=== PATIENT | female | born 2000 | race Caucasian/White ===

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

== ENCOUNTER 2018-08-20 20:34 | Emergency (ER) | payer OTHER ==
[2018-08-20 20:57] VITALS: BP 128/66; PULSE 77; RESP 16; TEMP 98.8
--- NOTE | 2018-08-20 21:19 | ED ---
General Adult HPI - General Chief complaint: Recheck/Abnormal Lab/Rx Stated complaint: Wants blood test, cramping Time Seen by Provider: 08/20/18 21:13 Source: patient Mode of arrival: ambulatory Limitations: no limitations - History of Present Illness Initial comments: Dictation was produced using [employer] dictation software. please excuse any grammatical, word or spelling errors. Chief Complaint: 18-year-old female presents with request for beta-hCG serum blood tests. History of Present Illness:-year-old female. She states that she had multiple positive urine test today. She went to the clinic where she had a mother urine test done it was found to be negative. Patient tod ay requesting hCG serum blood test. She states she has symptoms of early with left breast burning and polyuria. Patient's last menstrual period was 4 weeks ago. Patient has no complaints. The ROS documented in this emergency department record has been reviewed and confirmed by me. Those systems with pertinent positive or negative responses have been documented in the HPI. All other systems are other negative and/or noncontributory. PHYSICAL EXAM: General Impression: Alert and oriented x3, not in acute distress HEENT: Normocephalic atraumatic, extra-ocular movements intact, pupils equal and reactive to light bilaterally, mucous membranes moist. Cardiovascular: Heart regular rate and rhythm, S1&S2 audible, no murmurs, rubs or gallops Chest: Lungs clear to auscultation bilaterally, no rhonchi, no wheeze, no rales Abdomen: Bowel sounds present, abdomen soft, non-tender, non-distended, no organomegaly Musculoskeletal: Pulses present and equal in all extremities, no peripheral edema Motor: no focal deficits noted Neurological: CN II-XII grossly intact, no focal motor or sensory deficits noted Skin: Intact with no visualized rashes Psych: Normal affect and mood ED course: 18-year-old female with request for serum hCG test. As upon arrival are within acceptable limits. Patient has no medical complaint at this time. His beta Quant is 119.6. Patient has positive test. Patient does have an appointment early with obstetrics. Patient clear for discharge. Patient advised to take prenatals. She states she is vitamins at home that she is currently taking. Return Prevacid discussed. Patient clear for discharge. - Related Data Home Medications Medication Instructions Recorded Confirmed Pnv No.95/Ferrous Fum/Folic AC 1 each PO DAILY 09/03/17 09/03/17 [ Multivitamin Tablet] Previous Rx's Medication Instructions Recorded Ibuprofen [Motrin] 600 mg PO Q6HR PRN #30 tab 09/05/17 Allergies Allergy/AdvReac Type Severity Reaction Status Date / Time No Known Allergies Allergy Verified 08/20/18 21:17 Review of Systems ROS Statement: Those systems with pertinent positive or pertinent negative responses have been documented in the HPI. ROS Other: All systems not noted in ROS Statement are negative. Past Medical History Past Medical History: No Reported History Additional Past Medical History / Comment(s): A+GBS neg. History of Any Multi-Drug Resistant Organisms: None Reported Past Surgical History: No Surgical Hx Reported Past Anesthesia/Blood Transfusion Reactions: No Reported Reaction Past Psychological History: No Psychological Hx Reported Smoking Status: Never smoker Past Alcohol Use History: None Reported Past Drug Use History: None Reported - Past Family History Mother History Unknown: Yes General Exam Limitations: no limitations Course Vital Signs 08/20/18 20:53 Temperature 98.8 F Pulse Rate 77 Respiratory 16 Rate Blood Pressure 128/66 O2 Sat by Pulse 100 Oximetry Medical Decision Making - Lab Data Lab Results 08/20/18 Range/Units 21:20 HCG, Quant 119.6 mIU/mL Disposition Clinical Impression: Positive test Disposition: HOME SELF-CARE Condition: Good Instructions (If sedation given, give patient instructions): (ED) Is patient prescribed a controlled substance at d/c from ED?: No Referrals: Brooke Bartholomew MD [Primary Care Provider] - 1-2 days Time of Disposition: 22:21
== END 2018-08-20 22:33 | disposition home or self-care (01) ==
LOC: EC 20:34
DX: Z32.01 Encounter for pregnancy test, result positive (principal)
CPT/HCPCS: 36415; 84702; 99281

== ENCOUNTER → 2018-08-29 | Outpatient (CLI) | payer OTHER | LOC: LABWHC1 10:18 | PROVIDERS: ATTEND Nurse Practitioner | DX: O99.89 Other specified diseases and conditions complicating pregnancy, childbirth and the puerperium (principal); R10.9 Unspecified abdominal pain; Z3A.00 Weeks of gestation of pregnancy not specified | CPT/HCPCS: 36415; 84702 ==

== ENCOUNTER → 2018-09-01 | Outpatient (CLI) | payer OTHER | END | disposition home or self-care (01) | LOC: LABWHC1 11:40 | PROVIDERS: ATTEND Obstetrics & Gynecology | DX: O20.0 Threatened abortion (principal); Z3A.00 Weeks of gestation of pregnancy not specified | CPT/HCPCS: 36415; 84702 ==

== ENCOUNTER → 2018-09-17 | Outpatient (CLI) | payer OTHER ==
--- NOTE | 2018-09-17 15:58 | US ---
EXAMINATION TYPE: Transabdominal DATE OF EXAM: 09/17/2018 3:46 PM COMPARISON: Prior ultrasound August 26, 2018. CLINICAL HISTORY: confirms dates Z36. EXAM PERFORMED: Transabdominal (TA) EXAM MEASUREMENTS: GESTATIONAL AGE / DATING Physician Established: Not yet established Dates by LMP: 07/20/2018 ( 8 weeks/3 days) EDC: 04/26/2019 Dates by First Scan: no IUP seen Dates by Current Scan for: (8 weeks/1 days) EDC: 04/28/2019 MATERNAL ANATOMY Uterus: 9.6 x 6.4 x 5.7 cm Right Ovary: 3.7 x 1.9 x 1.6 cm Left Ovary: 2.9 x 1.6 x 2.9 cm Post CDS / Adnexa: wnl Presence of free fluid: none GESTATION / SURVEY CRL: 1.7 cm (8 weeks/1 days) Yolk Sac (normal less than 6mm): 0.4 cm Heart Rate: 164 bpm Rhythm: Normal IUP: Viable IUP Date of LMP: 07/20/2018 Single live intrauterine gestation is now present with yolk sac, pole, and gestational sac now observed. No free fluid. Both ovaries identified without suspicious extraovarian adnexal mass. IMPRESSION: Single live intrauterine gestation is now confirmed, mean crown-rump length is 1.7 cm cor responding to 8 week 1 day old fetus.
== END | disposition home or self-care (01) ==
LOC: RADUSWWP 15:20
PROVIDERS: ATTEND Obstetrics & Gynecology
DX: Z34.91 Encounter for supervision of normal pregnancy, unspecified, first trimester (principal); Z3A.08 8 weeks gestation of pregnancy
CPT/HCPCS: 76801

== ENCOUNTER 2019-01-02 20:25 | Outpatient (CLI) | payer OTHER ==
[2019-01-02 20:40] VITALS: BP 124/61; PULSE 85; RESP 16; TEMP 97.5
[2019-01-02 21:19] LABS: Appearance,Urine Clear (Clear); Bilirubin,Urine Negative (Negative); Blood,Urine Negative (Negative); Color,Urine Light Yellow; Glucose,Urine (UA) Negative (Negative); Ketones,Urine Negative (Negative); Leukocyte Esterase,Urine Negative (Negative); Nitrite,Urine Negative (Negative); Protein,Urine Negative (Negative); Urobilinogen,Urine <2.0 mg/dL (<2.0)
--- NOTE | 2019-01-12 03:50 | P.MSEPDOC ---
Presenting Problems - Arrival Data Date of Arrival on Unit: 01/02/19 Time of Arrival on Unit: 20:25 Mode of Transport: Ambulatory - Complaint OB-Reason for Admission/Chief Complaint: Signs/Symptoms UTI Medical History - Information : 2 Para: 1 Term: 1 : 0 Abortions: Spontaneous or Elective: 0 Number of Living Children: 1 - Gestational Age Gestational Age by JOHNATHON (wks/days): 23 Weeks and 5 Days Review of Systems - Review of Systems Constitutional: No problems Breast: No problems ENT: No problems Cardiovascular: No problems Respiratory: No problems Gastrointestinal: No problems Genitourinary: No problems Musculoskeletal: No problems Neurological: No problems Skin: No problems Vital Signs - Temperature Temperature: 97.5 F Temperature Source: Tympanic - Pulse Right Brachial Pulse Rate: 85 Pulse Assessment Method: Automatic Cuff - Respirations Respiratory Rate: 16 Oxygen Delivery Method: Room Air - Blood Pressure Right Arm Blood Pressure: 124/61 Blood Pressure Mean: 82 Blood Pressure Source: Automatic Cuff Medical Screen Scoring (Pre) - Cervical Exam Dilation: Exam Deferred Effacement: Exam Deferred - Uterine Contractions Frequency: N/A Duration: N/A Intensity: N/A - Maternal Vital Signs Maternal Temperature: N/A Maternal Blood Pressure: N/A Signs of Preeclampsia: N/A Maternal Respirations: N/A - Maternal Trauma Maternal Trauma: N/A - Assessment - Baby A Baseline FHR: 135 - Total Score - Baby A Total Score - Baby A: 0 - Total Score - Baby B Total Score - Baby B: 0 - Total Score - Baby C Total Score - Baby C: 0 - Level of Risk - Baby A Level of Risk - Baby A: Low (0-5) - Level of Risk - Baby B Level of Risk - Baby B: Low (0-5) - Level of Risk - Baby C Level of Risk - Baby C: Low (0-5) Physician Notification (Pre) - Physician Notified Physician Notified Date: 01/02/19 Physician Notified Time: 21:15 New Order Received: Yes - Notification Comment Comment: d/c home Disposition - Disposition OB Disposition: Discharge to home Discharge Date: 01/02/19 Discharge Time: 21:20 I agree with the RN Medical Screening Exam: No Physician's MSE Comment: There really is no documentation of the workup for UTI symptoms here. Risk & Benefit of care provided described in d/c instruction: No Risk & Benefit of Care Comment: I don't have documentation of what was told to the patient in this note. Diagnosis: URINARY TRACT INFECTION, SITE NOT SPECIFIED
== END 2019-01-02 21:20 | disposition home or self-care (01) ==
LOC: FBPOP 20:25
PROVIDERS: ATTEND Obstetrics & Gynecology
DX: O23.42 Unspecified infection of urinary tract in pregnancy, second trimester (principal); Z3A.23 23 weeks gestation of pregnancy
CPT/HCPCS: 81003; G0463; 99213

== ENCOUNTER 2019-03-05 12:39 | Outpatient (CLI) | payer OTHER ==
[2019-03-05 13:29] LABS: Appearance,Urine Clear (Clear); Bilirubin,Urine Negative (Negative); Blood,Urine Negative (Negative); Color,Urine Light Yellow; Glucose,Urine (UA) Negative (Negative); Ketones,Urine Negative (Negative); Leukocyte Esterase,Urine Negative (Negative); Nitrite,Urine Negative (Negative); Protein,Urine Negative (Negative); Specific Gravity,Urine 1.008 (1.001-1.035); Urobilinogen,Urine <2.0 mg/dL (<2.0)
[2019-03-05 14:03] VITALS: BP 119/64; PULSE 103; RESP 16; TEMP 97.5
--- NOTE | 2019-03-16 17:10 | P.MSEPDOC ---
Presenting Problems - Arrival Data Date of Arrival on Unit: 03/05/19 Time of Arrival on Unit: 12:39 Mode of Transport: Ambulatory - Complaint OB-Reason for Admission/Chief Complaint: Pain Comment: cramping, rates 4 on scale of 0-10 Medical History - Information : 2 Para: 1 Term: 1 : 0 Abortions: Spontaneous or Elective: 0 Number of Living Children: 1 - Gestational Age Gestational Age by JOHNATHON (wks/days): 32 Weeks and 4 Days Review of Systems - Review of Systems Constitutional: No problems Breast: No problems ENT: No problems Cardiovascular: No problems Respiratory: No problems Gastrointestinal: No problems Genitourinary: No problems Musculoskeletal: No problems Neurological: No problems Skin: No problems Vital Signs - Temperature Temperature: 97.5 F Temperature Source: Temporal Artery Scan - Pulse Right Sitting Pulse Rate: 103 Pulse Assessment Method: Automatic Cuff - Respirations Respiratory Rate: 16 Oxygen Delivery Method: Room Air - Blood Pressure Right Arm Blood Pressure: 119/64 Blood Pressure Mean: 82 Blood Pressure Source: Automatic Cuff Medical Screen Scoring (Pre) - Cervical Exam Dilation: 0 cm = 0 Membranes: Intact - Uterine Contractions Frequency: > or = 36 weeks =2 Duration: > 40 seconds = 2 Intensity: N/A - Maternal Vital Signs Maternal Temperature: N/A Maternal Blood Pressure: N/A Signs of Preeclampsia: N/A Maternal Respirations: N/A - Maternal Trauma Maternal Trauma: N/A - Assessment - Baby A Baseline FHR: 135 Heart Rate - NICHD Category: Category I (Normal) = 0 NST: Reactive Position: N/A Station: N/A - Total Score - Baby A Total Score - Baby A: 4 - Total Score - Baby B Total Score - Baby B: 4 - Total Score - Baby C Total Score - Baby C: 4 - Level of Risk - Baby A Level of Risk - Baby A: Low (0-5) - Level of Risk - Baby B Level of Risk - Baby B: Low (0-5) - Level of Risk - Baby C Level of Risk - Baby C: Low (0-5) Physician Notification (Pre) - Physician Notified Physician Notified Date: 03/05/19 Physician Notified Time: 13:51 New Order Received: Yes (D/c home) Disposition - Disposition OB Disposition: Discharge to home Discharge Date: 03/05/19 Discharge Time: 13:55 I agree with the RN Medical Screening Exam: Yes Risk & Benefit of care provided described in d/c instruction: Yes Diagnosis: FALSE LABOR BEFORE 37 COMPLETED WEEKS OF GEST, THIRD TRI
== END 2019-03-05 13:55 | disposition home or self-care (01) ==
LOC: FBPOP 12:39
PROVIDERS: ATTEND Obstetrics & Gynecology
DX: O47.03 False labor before 37 completed weeks of gestation, third trimester (principal); Z3A.32 32 weeks gestation of pregnancy
CPT/HCPCS: 59025; 81003; G0463; 99213

== ENCOUNTER 2019-04-04 14:57 | Outpatient (CLI) | payer OTHER ==
[2019-04-04 16:36] LABS: Basophils % (A) 0 %; Eosinophils % (A) 1 %; HCT 26.8 % (34.0-46.0); HGB 8.8 gm/dL (11.4-16.0); Hypochromasia Moderate; Lymphocytes # (A) 1.7 k/uL (1.0-4.8); Lymphocytes % (A) 20 %; MCHC 32.7 g/dL (31.0-37.0); MCV 82.6 fL (80.0-100.0); Mean Platelet Volume 9.3; Monocytes # (A) 0.4 k/uL (0-1.0); Monocytes % (A) 5 %; Neutrophils # (A) 6.3 k/uL (1.3-7.7); Neutrophils % (A) 73 %; Platelet Count 199 k/uL (150-450); Poikilocytosis Slight; RBC 3.25 m/uL (3.80-5.40); RDW 14.5 % (11.5-15.5); WBC 8.6 k/uL (4.0-11.0)
[2019-04-04 16:41] LABS: Amorphous Sediment,Urine Rare /hpf; Appearance,Urine Cloudy (Clear); Bacteria,Urine Moderate /hpf; Bilirubin,Urine Negative (Negative); Blood,Urine Negative (Negative); Color,Urine Light Yellow; Glucose,Urine (UA) Negative (Negative); Ketones,Urine Negative (Negative); Leukocyte Esterase,Urine Large (Negative); Mucus,Urine Rare /hpf; Nitrite,Urine Negative (Negative); Protein,Urine Negative (Negative); RBC,Urine 3 /hpf (0-5); Specific Gravity,Urine 1.012 (1.001-1.035); Squamous Epithelial Cell,Urine 4 /hpf (0-4); Urobilinogen,Urine <2.0 mg/dL (<2.0); WBC,Urine 90 /hpf (0-5)
[2019-04-04 16:45] LABS: ALT 15 U/L (4-34); AST 28 U/L (14-36); African American GFR (CKD) >90 (>60 ml/min/1.73 sqM); Blood Urea Nitrogen 15 mg/dL (7-17); Non-African American GFR(CKD) >90 (>60 ml/min/1.73 sqM); Uric Acid 3.8 mg/dL (3.7-7.4)
[2019-04-04 17:03] LABS: INR 0.9 (<1.2); Prothrombin Time 9.3 sec (9.0-12.0)
[2019-04-04 17:04] LABS: Partial Thromboplastin Time 20.2 sec (22.0-30.0)
[2019-04-04 17:51] VITALS: RESP 18; TEMP 98.3
[2019-04-04 17:54] VITALS: BP 116/56; PULSE 99
--- NOTE | 2019-04-07 08:18 | P.MSEPDOC ---
Presenting Problems - Arrival Data Date of Arrival on Unit: 04/04/19 Time of Arrival on Unit: 14:55 Mode of Transport: Ambulatory - Complaint OB-Reason for Admission/Chief Complaint: Possible Onset of Labor, Rule Out SROM Comment: 36 6/7 WKS WITH C/O CONTX 2-3 MIN APART AND QUESTIONABLE LEAKING OF FLUID ONSET NOON TODAY Medical History - Information : 2 Para: 1 Term: 1 : 0 Abortions: Spontaneous or Elective: 0 Number of Living Children: 1 - Gestational Age Gestational Age by JOHNATHON (wks/days): 36 Weeks and 2 Days - History Comment: HYPERTENSION ON ADMISSION IN TRIAGE. POLYHYDRAMNIOUS OF 27.3 OF FRIDAY APPT.2 DAYS AGO Review of Systems - Review of Systems Constitutional: No problems Breast: No problems ENT: No problems Cardiovascular: No problems Respiratory: No problems Gastrointestinal: No problems Genitourinary: No problems Musculoskeletal: No problems Neurological: No problems Skin: No problems Vital Signs - Temperature Temperature: 98.3 F - Pulse Right Brachial Pulse Rate: 99 Pulse Assessment Method: Automatic Cuff - Respirations Respiratory Rate: 18 Oxygen Delivery Method: Room Air - Blood Pressure Right Arm Blood Pressure: 116/56 Blood Pressure Mean: 76 Blood Pressure Source: Automatic Cuff Medical Screen Scoring (Pre) - Cervical Exam Dilation: 0 cm = 0 Effacement: Exam Deferred Membranes: Intact - Uterine Contractions Frequency: N/A Duration: N/A Intensity: N/A - Maternal Vital Signs Maternal Temperature: N/A Maternal Blood Pressure: Systolic >139 = 2 Signs of Preeclampsia: N/A Maternal Respirations: N/A - Maternal Trauma Maternal Trauma: N/A - Assessment - Baby A Baseline FHR: 135 Heart Rate - NICHD Category: Category I (Normal) = 0 NST: Reactive - Total Score - Baby A Total Score - Baby A: 2 - Total Score - Baby B Total Score - Baby B: 2 - Total Score - Baby C Total Score - Baby C: 2 - Level of Risk - Baby A Level of Risk - Baby A: Low (0-5) - Level of Risk - Baby B Level of Risk - Baby B: Low (0-5) - Level of Risk - Baby C Level of Risk - Baby C: Low (0-5) Physician Notification (Pre) - Physician Notified Physician Notified Date: 04/04/19 Physician Notified Time: 15:25 New Order Received: Yes - Notification Comment Comment: [facility] Medical Screen Scoring (Post) - Cervical Exam Dilation: Exam Deferred Effacement: Exam Deferred Membranes: Intact - Uterine Contractions Frequency: N/A Duration: N/A Intensity: N/A - Maternal Vital Signs Maternal Temperature: N/A Maternal Blood Pressure: N/A Signs of Preeclampsia: N/A Maternal Respirations: N/A - Pain Assessment Pain Location and Character: Lower, Abdomen Pain Scale Used: Numeric (1 - 10) Pain Intensity: 4 Pain Aggravating Factors: Contractions - Maternal Trauma Maternal Trauma: N/A - Assessment - Baby A Heart Rate: 135 Heart Rate - NICHD Category: Category I (Normal) = 0 NST: Reactive Position: N/A Station: N/A - Total Score Total Score - Baby A: 0 Total Score - Baby B: 0 Total Score - Baby C: 0 - Post Treatment Level of Risk Post Treatment Level of Risk - Baby A: Low (0-5) Post Treatment Level of Risk - Baby B: Low (0-5) Post Treatment Level of Risk - Baby C: Low (0-5) Physician Notification (Post) - Physician Notified Physician Notified Date: 04/04/19 Physician Notified Time: 16:45 Spoke With: MELANY New Order Received: Yes - Notification Comment Comment: DISCH HOME. Disposition - Disposition OB Disposition: Discharge to home Discharge Date: 04/04/19 Discharge Time: 17:00 I agree with the RN Medical Screening Exam: Yes Risk & Benefit of care provided described in d/c instruction: Yes Diagnosis: FALSE LABOR BEFORE 37 COMPLETED WEEKS OF GEST, THIRD TRI
== END 2019-04-04 17:00 | disposition home or self-care (01) ==
LOC: FBPOP 14:57
PROVIDERS: ATTEND Obstetrics & Gynecology
DX: O47.03 False labor before 37 completed weeks of gestation, third trimester (principal); Z3A.36 36 weeks gestation of pregnancy
CPT/HCPCS: 59025; 82565; 84450; 84460; 84520; 84550; 85025; 85384; 85610; 85730; 81001; 87086; G0463; 99215

== ENCOUNTER 2019-04-06 11:02 | Outpatient (CLI) | payer OTHER ==
--- NOTE | 2019-04-06 12:27 | US ---
EXAMINATION TYPE: US OB BPP wo non-stress DATE OF EXAM: 04/06/2019 COMPARISON: First trimester ultrasound September 17, 2018 CLINICAL HISTORY: polyhydramnios. failed NST, h/o ATUL of 27 at office last week EXAM PERFORMED: Transabdominal (TA) BPP PARAMETERS: PRESENTATION: Vertex LIE: Longitudinal?? HEART RATE: 129 bpm RHYTHM: Normal ATUL: 20.0 DIAPHRAGM IMAGED: yes BPP SCORIN. Breathin (1 episode of breathing of 30 second duration in 30 minutes of scanning time) 2. Movement: 0 (at least 3 discrete body movements in 30 minutes) 3. Tone: 2 (1 episode of active flexion/extension of limb) 4. ATUL: 2 (ATUL index > 5cm) incidental finding of very distended bladder on fetus. It appeared distended of beginning of exam b ut was documented 13 mins in and still remained distended at the end of 30 mins. TOTAL SCORE: 6 / 8 Abnormal biophysical profile as noted above. Distended bladder noted seen best towards end of s tudy.
[2019-04-06 13:20] LABS: Appearance,Urine Cloudy (Clear); Bacteria,Urine Moderate /hpf; Bilirubin,Urine Negative (Negative); Blood,Urine Negative (Negative); Color,Urine Yellow; Glucose,Urine (UA) Negative (Negative); Ketones,Urine Negative (Negative); Leukocyte Esterase,Urine Large (Negative); Mucus,Urine Rare /hpf; Nitrite,Urine Negative (Negative); PH, Urine 6.5 (5.0-8.0); Protein,Urine Trace (Negative); RBC,Urine 5 /hpf (0-5); Specific Gravity,Urine 1.012 (1.001-1.035); Squamous Epithelial Cell,Urine 5 /hpf (0-4); Urobilinogen,Urine <2.0 mg/dL (<2.0); WBC,Urine 23 /hpf (0-5)
[2019-04-06 13:24] LABS: Basophils % (A) 0 %; Eosinophils % (A) 0 %; HCT 27.8 % (34.0-46.0); HGB 8.8 gm/dL (11.4-16.0); Hypochromasia Marked; Lymphocytes # (A) 1.5 k/uL (1.0-4.8); Lymphocytes % (A) 18 %; MCH 26.1 pg (25.0-35.0); MCHC 31.6 g/dL (31.0-37.0); MCV 82.6 fL (80.0-100.0); Mean Platelet Volume 9.9; Monocytes # (A) 0.3 k/uL (0-1.0); Monocytes % (A) 4 %; Neutrophils # (A) 6.7 k/uL (1.3-7.7); Neutrophils % (A) 76 %; Platelet Count 199 k/uL (150-450); Poikilocytosis Slight; RBC 3.37 m/uL (3.80-5.40); RDW 14.5 % (11.5-15.5); WBC 8.8 k/uL (4.0-11.0)
[2019-04-06 13:37] LABS: Protein/Creatinine Ratio,Urine 0.177
[2019-04-06 13:43] LABS: ALT 15 U/L (4-34); AST 28 U/L (14-36); African American GFR (CKD) >90 (>60 ml/min/1.73 sqM); Blood Urea Nitrogen 10 mg/dL (7-17); LDH 517 U/L (313-618); Non-African American GFR(CKD) >90 (>60 ml/min/1.73 sqM); Uric Acid 4.2 mg/dL (3.7-7.4)
--- NOTE | 2019-04-06 16:11 | US ---
EXAMINATION TYPE: US OB BPP wo non-stress DATE OF EXAM: 04/06/2019 COMPARISON: Limited OB ultrasound earlier today CLINICAL HISTORY: follow up from previous result of 08/08. EXAM PERFORMED: Transabdominal (TA) BPP PARAMETERS: PRESENTATION: Vertex LIE: Longitudinal?? HEART RATE: 128 bpm RHYTHM: Normal ATUL: 20 cm DIAPHRAGM IMAGED: YES BPP SCORIN. Breathin (1 episode of breathing of 30 second duration in 30 minutes of scanning time) 2. Movement: 2 (at least 3 discrete body movements in 30 minutes) 3. Tone: 2 (1 episode of active flexion/extension of limb) 4. ATUL: 2 (ATUL index > 5cm) TOTAL SCORE: 8 / 8 Impression: Repeat biophysical profile scored 8 out of 8 in the normal range with adequate body movem ents identified.
--- NOTE | 2019-04-06 18:10 | P.MSEPDOC ---
Presenting Problems - Arrival Data Date of Arrival on Unit: 04/06/19 Time of Arrival on Unit: 11:02 Mode of Transport: Stretcher I agree with the RN Medical Screening Exam: Yes Risk & Benefit of care provided described in d/c instruction: Yes Diagnosis: POLYHYDRAMNIOS, THIRD TRIMESTER, FETUS 1 (Patient was sent over from the office for evaluation of a increased variability on office nonstress testing. Patient is a 18-year-old 2 para 1 female 37 weeks gestation who is followed by Dr. Mcdonald for polyhydramnios. Patient had a nonstress test in the office showed that it was reactive but had increased variability therefore I sent her over for prolonged monitoring and biophysical profile. Initial blood pressure was 152/77 however multiple repeat blood pressures were normal which is consistent with her office blood pressures. Preeclampsia labs were negative. heart tones are category 1. Initial biophysical profile was 6 out of 8 however the nurse did audibly hear the baby moving on the monitor throughout her monitoring therefore I monitored this patient for 4 hours and repeat her biophysical profile was 8 out of 8. This time there is no evidence of gestational hypertension, no evidence of maternal compromise, and also patient's amniotic fluid was normal at 20. I did do an amnio sure which was negative. I discussed this all with the patient and recommended follow-up in the office tomorrow morning for repeat blood pressure check and nonstress test at 9:30. Patient given strict instructions return if she has any concerns including but not limited to decreased movement, leaking of fluid, contractions, or any bleeding.)
== END 2019-04-06 16:20 | disposition home or self-care (01) ==
LOC: FBPOP 11:02
PROVIDERS: ATTEND Obstetrics & Gynecology
DX: O40.3XX1 Polyhydramnios, third trimester, fetus 1 (principal); N32.89 Other specified disorders of bladder; Z3A.37 37 weeks gestation of pregnancy
CPT/HCPCS: 59025; 76819; 81001; 82565; 82570; 83615; 84156; 84450; 84460; 84520; 84550; 85025

== ENCOUNTER 2019-04-16 21:25 | Outpatient (CLI) | payer OTHER ==
[2019-04-16 23:17] VITALS: BP 129/69; PULSE 110; RESP 18; TEMP 97.8
--- NOTE | 2019-04-17 09:44 | P.MSEPDOC ---
Presenting Problems - Arrival Data Date of Arrival on Unit: 04/16/19 Time of Arrival on Unit: 21:25 Mode of Transport: Ambulatory - Complaint OB-Reason for Admission/Chief Complaint: Possible Onset of Labor Comment: Patient states she has been having contractions every 4-5 minutes since. 11am. Patient also states she is having decreased movement. Medical History - Information : 2 Para: 1 Term: 1 : 0 Abortions: Spontaneous or Elective: 0 Number of Living Children: 1 - Gestational Age Gestational Age by JOHNATHON (wks/days): 38 Weeks and 4 Days Review of Systems - Review of Systems Constitutional: No problems Breast: No problems ENT: No problems Cardiovascular: No problems Respiratory: No problems Gastrointestinal: No problems Genitourinary: No problems Musculoskeletal: No problems Neurological: No problems Skin: No problems Vital Signs - Temperature Temperature: 97.8 F Temperature Source: Temporal Artery Scan - Pulse Right Brachial Pulse Rate: 110 Pulse Assessment Method: Automatic Cuff - Respirations Respiratory Rate: 18 Oxygen Delivery Method: Room Air O2 Sat by Pulse Oximetry: 98 - Blood Pressure Right Arm Blood Pressure: 129/69 Blood Pressure Mean: 89 Blood Pressure Source: Automatic Cuff Medical Screen Scoring (Pre) - Cervical Exam Dilation: 1-3 cm = 1 Effacement: More than 50% = 2 Membranes: Intact - Uterine Contractions Frequency: > 5 minutes apart = 1 Duration: N/A Intensity: N/A - Maternal Vital Signs Maternal Temperature: N/A Maternal Blood Pressure: N/A Signs of Preeclampsia: N/A Maternal Respirations: N/A - Assessment - Baby A Baseline FHR: 130 Heart Rate - NICHD Category: Category I (Normal) = 0 NST: Reactive - Total Score - Baby A Total Score - Baby A: 4 - Total Score - Baby B Total Score - Baby B: 4 - Total Score - Baby C Total Score - Baby C: 4 - Level of Risk - Baby A Level of Risk - Baby A: Low (0-5) - Level of Risk - Baby B Level of Risk - Baby B: Low (0-5) - Level of Risk - Baby C Level of Risk - Baby C: Low (0-5) Physician Notification (Pre) - Physician Notified Physician Notified Date: 04/16/19 Physician Notified Time: 22:51 New Order Received: Yes - Notification Comment Comment: RN reported maternal and status. Patients cervical exam remained. unchanged after one hour. Reactive NST. Patient reports increased movement. Vital. signs within normal limits. Discharge ordered for patient with instructions to increase. fluid intake. Patient updated on plan of care and in agreement. Patient is to be induced on as planned. No follow up appointment scheduled. Disposition - Disposition OB Disposition: Discharge to home Discharge Date: 04/16/19 Discharge Time: 23:10 I agree with the RN Medical Screening Exam: Yes Risk & Benefit of care provided described in d/c instruction: Yes Diagnosis: FALSE LABOR AT OR AFTER 37 COMPLETED WEEKS OF GESTATION
== END 2019-04-16 23:10 | disposition home or self-care (01) ==
LOC: FBPOP 21:25
PROVIDERS: ATTEND Obstetrics & Gynecology
DX: O47.1 False labor at or after 37 completed weeks of gestation (principal); Z3A.38 38 weeks gestation of pregnancy
CPT/HCPCS: 59025; G0463; 99213

== ENCOUNTER 2019-04-19 10:54 | Outpatient (CLI) | payer OTHER ==
[2019-04-19 12:40] VITALS: BP 134/80; PULSE 93; RESP 16; TEMP 98.5
--- NOTE | 2019-04-22 13:15 | P.MSEPDOC ---
Presenting Problems - Arrival Data Date of Arrival on Unit: 04/19/19 Time of Arrival on Unit: 10:54 Mode of Transport: Ambulatory - Complaint OB-Reason for Admission/Chief Complaint: Possible Onset of Labor Medical History - Information : 2 Para: 1 Term: 1 : 0 Abortions: Spontaneous or Elective: 0 Number of Living Children: 1 - Gestational Age Gestational Age by JOHNATHON (wks/days): 38 Weeks and 6 Days Review of Systems - Review of Systems Constitutional: No problems Breast: No problems ENT: No problems Cardiovascular: No problems Respiratory: No problems Gastrointestinal: No problems Genitourinary: No problems Musculoskeletal: No problems Neurological: No problems Skin: No problems Vital Signs - Temperature Temperature: 98.5 F Temperature Source: Oral - Pulse Right Sitting Pulse Rate: 93 Pulse Assessment Method: Automatic Cuff - Respirations Respiratory Rate: 16 Oxygen Delivery Method: Room Air - Blood Pressure Right Arm Blood Pressure: 134/80 Blood Pressure Mean: 98 Blood Pressure Source: Automatic Cuff Medical Screen Scoring (Pre) - Cervical Exam Dilation: 1-3 cm = 1 Effacement: More than 50% = 2 Membranes: Intact - Uterine Contractions Frequency: > 5 minutes apart = 1 Duration: > 40 seconds = 2 - Maternal Vital Signs Maternal Temperature: N/A Maternal Blood Pressure: N/A Signs of Preeclampsia: N/A Maternal Respirations: N/A - Maternal Trauma Maternal Trauma: N/A - Assessment - Baby A Baseline FHR: 135 Heart Rate - NICHD Category: Category I (Normal) = 0 NST: Reactive Position: N/A Station: N/A - Total Score - Baby A Total Score - Baby A: 6 - Total Score - Baby B Total Score - Baby B: 6 - Total Score - Baby C Total Score - Baby C: 6 - Level of Risk - Baby A Level of Risk - Baby A: Medium (6-9) - Level of Risk - Baby B Level of Risk - Baby B: Medium (6-9) - Level of Risk - Baby C Level of Risk - Baby C: Medium (6-9) Physician Notification (Pre) - Physician Notified Physician Notified Date: 04/19/19 Physician Notified Time: 12:15 New Order Received: Yes (d/c home) Disposition - Disposition OB Disposition: Discharge to home Discharge Date: 04/19/19 Discharge Time: 12:30 I agree with the RN Medical Screening Exam: Yes Risk & Benefit of care provided described in d/c instruction: Yes Diagnosis: FALSE LABOR AT OR AFTER 37 COMPLETED WEEKS OF GESTATION
== END 2019-04-19 12:30 | disposition home or self-care (01) ==
LOC: FBPOP 10:54
PROVIDERS: ATTEND Obstetrics & Gynecology
DX: O47.1 False labor at or after 37 completed weeks of gestation (principal); Z3A.38 38 weeks gestation of pregnancy
CPT/HCPCS: 59025; G0463; 99213

== ENCOUNTER 2020-10-28 17:19 | Emergency (ER) | payer OTHER ==
[2020-10-28 17:41] VITALS: RESP 18; TEMP 98.5
[2020-10-28 18:50] LABS: Appearance,Urine Cloudy (Clear); Bacteria,Urine Rare /hpf; Bilirubin,Urine Negative (Negative); Blood,Urine Negative (Negative); Color,Urine Yellow; Glucose,Urine (UA) Negative (Negative); Ketones,Urine Negative (Negative); Leukocyte Esterase,Urine Trace (Negative); Mucus,Urine Moderate /hpf; Nitrite,Urine Negative (Negative); PH, Urine 5.5 (5.0-8.0); Protein,Urine Negative (Negative); RBC,Urine <1 /hpf (0-5); Squamous Epithelial Cell,Urine 5 /hpf (0-4); WBC,Urine 3 /hpf (0-5)
--- NOTE | 2020-10-28 19:14 | ED ---
Recheck HPI - General Chief Complaint: Recheck/Abnormal Lab/Rx Stated Complaint: test Time Seen by Provider: 10/28/20 17:42 Source: patient, RN notes reviewed Mode of arrival: ambulatory Limitations: no limitations - History of Present Illness Initial Comments: Patient is a 20-year-old female that presents to emergency department wanting a serum test. She notes she took a home test that tested positive today. She notes that she's missed her cycle that was supposed to start today. She denied any issues or complaints this time. She was well- appearing 20-year-old female. She denied any chest pain first breath headache nausea vomiting diarrhea constipation fever fatigue chills abdominal cramping abnormal uterine bleeding. - Related Data Previous Rx's Medication Instructions Recorded Ibuprofen [Motrin] 600 mg PO Q6HR PRN #60 tab 04/23/19 Allergies Allergy/AdvReac Type Severity Reaction Status Date / Time No Known Allergies Allergy Verified 10/28/20 17:38 Review of Systems ROS Statement: Those systems with pertinent positive or pertinent negative responses have been documented in the HPI. ROS Other: All systems not noted in ROS Statement are negative. Past Medical History Past Medical History: No Reported History Additional Past Medical History / Comment(s): A+GBS neg. History of Any Multi-Drug Resistant Organisms: None Reported Past Surgical History: No Surgical Hx Reported Past Anesthesia/Blood Transfusion Reactions: No Reported Reaction Past Psychological History: No Psychological Hx Reported Smoking Status: Never smoker Past Alcohol Use History: None Reported Past Drug Use History: None Reported - Past Family History Mother History Unknown: Yes Family Medical History: No Reported History General Exam Limitations: no limitations General appearance: alert, in no apparent distress Head exam: Present: atraumatic, normocephalic, normal inspection Eye exam: Present: normal appearance, PERRL, EOMI. Absent: scleral icterus, conjunctival injection, periorbital swelling Neck exam: Present: normal inspection Respiratory exam: Present: normal lung sounds bilaterally. Absent: respiratory distress, wheezes, rales, rhonchi, stridor Cardiovascular Exam: Present: regular rate, normal rhythm, normal heart sounds. Absent: systolic murmur, diastolic murmur, rubs, gallop, clicks Extremities exam: Present: normal inspection, full ROM, normal capillary refill. Absent: tenderness, pedal edema, joint swelling, calf tenderness Neurological exam: Present: alert, oriented X3 Psychiatric exam: Present: normal affect, normal mood Skin exam: Present: warm, dry, intact, normal color. Absent: rash Course Vital Signs 10/28/20 17:38 Temperature 98.5 F Pulse Rate 94 Respiratory 18 Rate Blood Pressure 113/68 O2 Sat by Pulse 99 Oximetry Medical Decision Making - Medical Decision Making 20-year-old female wanting a serum test and urine test. Serum hCG and urine analysis with hCG ordered. Both hCGs are negative. Case discussed with Dr. Juarez, patient can discharge home with follow-up to [facility]. - Lab Data Lab Results 10/28/20 10/28/20 10/28/20 Range/Units 18:08 18:08 18:08 HCG, Quant <2.4 mIU/mL Urine Color Yellow Urine Appearance Cloudy H (Clear) Urine pH 5.5 (5.0-8.0) Ur Specific [place] 1.030 (1.001-1.035) Urine Protein Negative (Negative) Urine Glucose (UA) Negative (Negative) Urine Ketones Negative (Negative) Urine Blood Negative (Negative) Urine Nitrite Negative (Negative) Urine Bilirubin Negative (Negative) Urine Urobilinogen 2.0 (<2.0) mg/dL Ur Leukocyte Esterase Trace H (Negative) Urine RBC <1 (0-5) /hpf Urine WBC 3 (0-5) /hpf Ur Squamous Epith Cells 5 H (0-4) /hpf Urine Bacteria Rare H (None) /hpf Urine Mucus Moderate H (None) /hpf Urine HCG, Qual Not Detected (Not Detectd) Disposition Clinical Impression: Encounter for routine laboratory testing Disposition: HOME SELF-CARE Condition: Stable Instructions (If sedation given, give patient instructions): (ED) Additional Instructions: Please return to the Emergency Department if symptoms worsen or any other concerns. Follow-up primary care and [facility] as needed. Is patient prescribed a controlled substance at d/c from ED?: No Referrals: None,Stated [Primary Care Provider] - 1-2 days Time of Disposition: 19:14
[2020-10-28 19:24] VITALS: BP 107/67; PULSE 96
== END 2020-10-28 19:23 | disposition home or self-care (01) ==
LOC: EC 17:19
DX: Z32.02 Encounter for pregnancy test, result negative (principal)
CPT/HCPCS: 36415; 81001; 81025; 84702; 99282

== ENCOUNTER 2020-12-06 20:23 | Emergency (ER) | payer OTHER ==
[2020-12-06 21:02] VITALS: BP 106/52; PULSE 87; RESP 16; TEMP 98.6
[2020-12-06] MEDS ORDERED: SODIUM CHLORIDE 0.9% 1,000 ML IV ONE (21:23)
[2020-12-06 21:57] LABS: Basophils # (A) 0.1 k/uL (0-0.2); Basophils % (A) 1 %; Eosinophils # (A) 0.2 k/uL (0-0.7); Eosinophils % (A) 2 %; HCT 36.8 % (34.0-46.0); HGB 11.7 gm/dL (11.4-16.0); Lymphocytes # (A) 2.3 k/uL (1.0-4.8); Lymphocytes % (A) 25 %; MCH 29.9 pg (25.0-35.0); MCHC 31.9 g/dL (31.0-37.0); MCV 93.7 fL (80.0-100.0); Mean Platelet Volume 8.1; Monocytes # (A) 0.6 k/uL (0-1.0); Monocytes % (A) 6 %; Neutrophils % (A) 64 %; Platelet Count 219 k/uL (150-450); RBC 3.92 m/uL (3.80-5.40); RDW 13.9 % (11.5-15.5); WBC 9.3 k/uL (3.8-10.6)
[2020-12-06 22:02] LABS: Amorphous Sediment,Urine Few /hpf; Appearance,Urine Cloudy (Clear); Bilirubin,Urine Negative (Negative); Blood,Urine Negative (Negative); Color,Urine Yellow; Glucose,Urine (UA) Negative (Negative); Ketones,Urine Negative (Negative); Leukocyte Esterase,Urine Negative (Negative); Mucus,Urine Rare /hpf; Nitrite,Urine Negative (Negative); Protein,Urine Negative (Negative); RBC,Urine 1 /hpf (0-5); Specific Gravity,Urine 1.023 (1.001-1.035); Squamous Epithelial Cell,Urine 1 /hpf (0-4); Urobilinogen,Urine <2.0 mg/dL (<2.0); WBC,Urine 1 /hpf (0-5)
[2020-12-06 22:07] LABS: ALT 33 U/L (4-34); AST 25 U/L (14-36); African American GFR (CKD) >90 (>60 ml/min/1.73 sqM); Albumin 4.1 g/dL (3.5-5.0); Alkaline Phosphatase 40 U/L (38-126); Anion Gap 7 mmol/L; Blood Urea Nitrogen 11 mg/dL (7-17); Calcium 9.1 mg/dL (8.4-10.2); Carbon Dioxide 23 mmol/L (22-30); Chloride 107 mmol/L (98-107); Glucose 102 mg/dL (74-99); Non-African American GFR(CKD) >90 (>60 ml/min/1.73 sqM); Potassium 4.2 mmol/L (3.5-5.1); Sodium 137 mmol/L (137-145); Total Bilirubin 0.2 mg/dL (0.2-1.3); Total Protein 6.7 g/dL (6.3-8.2)
[2020-12-06 22:22] LABS: HCG,Quantitative Serum 522.5 mIU/mL
--- NOTE | 2020-12-06 22:25 | ED ---
General Adult HPI - General Chief complaint: Vaginal Bleeding Stated complaint: Abd Pain, Vaginal Bleeding, Preg not sure weeks Time Seen by Provider: 12/06/20 21:03 Source: patient Mode of arrival: ambulatory Limitations: no limitations - History of Present Illness Initial comments: 20 year-old female patient presents to the emergency department for evaluation of suprapubic cramping and vaginal bleeding. Patient states last menstrual period was 10/27/20. She had positive home test. She is . States that symptoms started about three days ago. Denies having to wear a pad. Denies any passage of blood clots. Denies any hematuria, dysuria, urinary frequency, urinary urgency. Denies fever or chills. States she will be seeing Dr. Ricks but has not had a visit or ultrasound yet. Patient denies any recent rash, cough, shortness of breath, chest pain, nausea, vomiting, diarrhea, constipation, back pain, numbness, tingling, dizziness, weakness, headache, visual changes, or any other complaints. - Related Data Previous Rx's Medication Instructions Recorded Ibuprofen [Motrin] 600 mg PO Q6HR PRN #60 tab 04/23/19 Allergies Allergy/AdvReac Type Severity Reaction Status Date / Time No Known Allergies Allergy Verified 12/06/20 21:00 Review of Systems ROS Statement: Those systems with pertinent positive or pertinent negative responses have been documented in the HPI. ROS Other: All systems not noted in ROS Statement are negative. Past Medical History Past Medical History: No Reported History Additional Past Medical History / Comment(s): A+GBS neg. History of Any Multi-Drug Resistant Organisms: None Reported Past Surgical History: No Surgical Hx Reported Past Anesthesia/Blood Transfusion Reactions: No Reported Reaction Past Psychological History: No Psychological Hx Reported Smoking Status: Never smoker Past Alcohol Use History: None Reported Past Drug Use History: None Reported - Past Family History Mother History Unknown: Yes Family Medical History: No Reported History General Exam Limitations: no limitations General appearance: alert, in no apparent distress, other (This is a well developed, well nourished adult female in no acute distress. Vital signs upon presentation are temperature 98.6F, pulse 87, respirations 16, blood pressure 106/52, pulse ox 99% on room air.) Eye exam: Present: normal appearance, PERRL, EOMI. Absent: scleral icterus, conjunctival injection, periorbital swelling ENT exam: Present: normal exam, normal oropharynx, mucous membranes moist Respiratory exam: Present: normal lung sounds bilaterally. Absent: respiratory distress, wheezes, rales, rhonchi, stridor Cardiovascular Exam: Present: regular rate, normal rhythm, normal heart sounds. Absent: systolic murmur, diastolic murmur, rubs, gallop, clicks GI/Abdominal exam: Present: soft, normal bowel sounds. Absent: distended, tenderness, guarding, rebound, rigid Neurological exam: Present: alert, oriented X3, CN II-XII intact Psychiatric exam: Present: normal affect, normal mood Skin exam: Present: warm, dry, intact, normal color. Absent: rash Course Vital Signs 12/06/20 21:00 Temperature 98.6 F Pulse Rate 87 Respiratory 16 Rate Blood Pressure 106/52 O2 Sat by Pulse 99 Oximetry Medical Decision Making - Medical Decision Making 20-year-old female patient who is G3, P2 presents to the emergency department today for evaluation of vaginal bleeding in early . Physical examination was unremarkable. Labs reviewed and did reveal hCG of 522. Ultrasound showed no intrauterine at this time. ABO Rh was A+. I did discuss findings with her. We discussed threatened miscarriage versus spontaneous . She'll be given a lab slip to return for hCG level in 2 days. She is instructed to follow-up with her [facility] for recheck as soon as possible. Return parameters were discussed in detail. She verbalizes understanding and agrees with this plan. My attending is Dr. Mistry. - Lab Data Result diagrams: 12/06/20 21:29 12/06/20 Unknown Lab Results 12/06/20 12/06/20 12/06/20 Range/Units 18:07 21:29 Unknown WBC 9.3 (3.8-10.6) k/uL RBC 3.92 (3.80-5.40) m/uL Hgb 11.7 (11.4-16.0) gm/dL Hct 36.8 (34.0-46.0) % MCV 93.7 (80.0-100.0) fL MCH 29.9 (25.0-35.0) pg MCHC 31.9 (31.0-37.0) g/dL RDW 13.9 (11.5-15.5) % Plt Count 219 (150-450) k/uL MPV 8.1 Neutrophils % 64 % Lymphocytes % 25 % Monocytes % 6 % Eosinophils % 2 % Basophils % 1 % Neutrophils # 6.0 (1.3-7.7) k/uL Lymphocytes # 2.3 (1.0-4.8) k/uL Monocytes # 0.6 (0-1.0) k/uL Eosinophils # 0.2 (0-0.7) k/uL Basophils # 0.1 (0-0.2) k/uL Sodium 137 (137-145) mmol/L Potassium 4.2 (3.5-5.1) mmol/L Chloride 107 (98-107) mmol/L Carbon Dioxide 23 (22-30) mmol/L Anion Gap 7 mmol/L BUN 11 (7-17) mg/dL Creatinine 0.48 L (0.52-1.04) mg/dL Est GFR (CKD-EPI)AfAm >90 (>60 ml/min/1.73 sqM) Est GFR (CKD-EPI)NonAf >90 (>60 ml/min/1.73 sqM) Glucose 102 H (74-99) mg/dL Calcium 9.1 (8.4-10.2) mg/dL Total Bilirubin 0.2 (0.2-1.3) mg/dL AST 25 (14-36) U/L ALT 33 (4-34) U/L Alkaline Phosphatase 40 (38-126) U/L Total Protein 6.7 (6.3-8.2) g/dL Albumin 4.1 (3.5-5.0) g/dL HCG, Quant 522.5 mIU/mL Urine Color Yellow Urine Appearance Cloudy H (Clear) Urine pH 8.0 (5.0-8.0) Ur Specific [place] 1.023 (1.001-1.035) Urine Protein Negative (Negative) Urine Glucose (UA) Negative (Negative) Urine Ketones Negative (Negative) Urine Blood Negative (Negative) Urine Nitrite Negative (Negative) Urine Bilirubin Negative (Negative) Urine Urobilinogen <2.0 (<2.0) mg/dL Ur Leukocyte Esterase Negative (Negative) Urine RBC 1 (0-5) /hpf Urine WBC 1 (0-5) /hpf Ur Squamous Epith Cells 1 (0-4) /hpf Amorphous Sediment Few H (None) /hpf Urine Mucus Rare H (None) /hpf - Radiology Data Radiology results: report reviewed, image reviewed Ultrasound of the pelvis is obtained. Report reviewed in its entirety. Impre ssion by Dr. Zamora shows uterus is empty. No adnexal mass. No sign of ectopic . Disposition Clinical Impression: Threatened miscarriage Disposition: HOME SELF-CARE Condition: Good Instructions (If sedation given, give patient instructions): Threatened Miscarriage (ED) Additional Instructions: Increase fluids. Rest. Have repeat hormone level performed in 2 days. Follow up with OBGYN as soon as possible. Return for any new, worsening, or concerning symptoms. Is patient prescribed a controlled substance at d/c from ED?: No Referrals: None,Stated [Primary Care Provider] - 1-2 days
--- NOTE | 2020-12-06 22:40 | US ---
EXAMINATION TYPE: Transabdominal DATE OF EXAM: 12/06/2020 9:55 PM COMPARISON: NONE CLINICAL HISTORY: pelvic cramping; pos home test. EXAM PERFORMED: Transabdominal (TA) EXAM MEASUREMENTS: GESTATIONAL AGE / DATING Physician Established: Not yet established Dates by LMP: (5 weeks/5 days) EDC: 08/03/2021 Dates by Current Scan for: No IUP seen at this time MATERNAL ANATOMY Uterus: 7.7 x 3.3 x 5.0 cm Right Ovary: 3.4 x 2.0 x 2.2 cm Left Ovary: 3.1 x 1.5 x 1.3 cm Post CDS / Adnexa: wnl Presence of free fluid: no Presence of corpus luteal cyst: no Presence of subchorionic bleed: no GESTATION / SURVEY IUP: No IUP seen at this time Date of LMP: 10/27/2020 Beta HcG (if available): Not available at this time No IUP visualized at this time. Endometrium measures 1.2 cm IMPRESSION: Uterus is empty. No adnexal mass. No sign of ectopic .
== END 2020-12-06 23:08 | disposition home or self-care (01) ==
LOC: EC 20:23
DX: O20.0 Threatened abortion (principal); Z3A.01 Less than 8 weeks gestation of pregnancy
CPT/HCPCS: 36415; 76801; 80053; 81001; 84702; 85025; 86900; 86901; 96360; 99284

== ENCOUNTER → 2020-12-08 | Outpatient (CLI) | payer OTHER | END | disposition home or self-care (01) | LOC: LABWHC1 09:56 | PROVIDERS: ATTEND Nurse Practitioner | DX: O20.0 Threatened abortion (principal); Z3A.00 Weeks of gestation of pregnancy not specified | CPT/HCPCS: 36415; 84702 ==

== ENCOUNTER → 2020-12-11 | Outpatient (CLI) | payer OTHER | END | disposition home or self-care (01) | LOC: LABWHC1 08:17 | PROVIDERS: ATTEND Obstetrics & Gynecology | DX: O20.0 Threatened abortion (principal); Z3A.00 Weeks of gestation of pregnancy not specified | CPT/HCPCS: 36415; 84702 ==

== ENCOUNTER → 2020-12-13 | Outpatient (CLI) | payer OTHER | END | disposition home or self-care (01) | LOC: LABWHC1 08:03 | PROVIDERS: ATTEND Obstetrics & Gynecology | DX: N92.6 Irregular menstruation, unspecified (principal) | CPT/HCPCS: 36415; 84702 ==

== ENCOUNTER 2021-06-25 18:19 | Outpatient (CLI) | payer OTHER ==
[2021-06-25 19:18] VITALS: BP 140/77; PULSE 84; RESP 18; TEMP 97.2
--- NOTE | 2021-06-27 08:10 | P.MSEPDOC ---
Presenting Problems - Arrival Data Date of Arrival on Unit: 06/25/21 Time of Arrival on Unit: 18:19 Mode of Transport: Ambulatory - Complaint OB-Reason for Admission/Chief Complaint: Rule Out SROM, Decreased Movement Comment: small gush of clear watery fluid at 1700, pt states decreased movement today. pt states she has also felt some cramping a few times today. Medical History - Information : 3 Para: 2 Term: 2 : 0 Abortions: Spontaneous or Elective: 0 Number of Living Children: 2 - Gestational Age Gestational Age by JOHNATHON (wks/days): 32 Weeks and 6 Days Review of Systems - Review of Systems Constitutional: No problems Breast: No problems ENT: No problems Cardiovascular: No problems Respiratory: No problems Gastrointestinal: No problems Genitourinary: No problems Musculoskeletal: No problems Neurological: No problems Skin: No problems Vital Signs - Temperature Temperature: 97.2 F Temperature Source: Axillary - Pulse Right Pulse Oximetery Pulse Rate: 84 Pulse Assessment Method: Pulse Oximetry - Respirations Respiratory Rate: 18 Oxygen Delivery Method: Room Air O2 Sat by Pulse Oximetry: 100 - Blood Pressure Right Arm Blood Pressure: 140/77 Blood Pressure Mean: 98 Blood Pressure Source: Automatic Cuff Medical Screen Scoring - Assessment - Baby A Baseline FHR: 140 Heart Rate - NICHD Category: Category I (Normal) NST: Reactive Physician Notification - Physician Notified Physician Notified Date: 06/25/21 Physician Notified Time: 19:00 Physician: Marily Reed New Order Received: Yes - Notification Comment Comment: okay to D/C patient due to reactive NST, negative amnisure, no contractions seen on monitor or per palpation Maternal Triage Index - Maternal Triage Index Presenting for scheduled procedure w/no complaint: No - Stat/Priority 1 Stat Priority 1: No - Urgent/Priority 2 Urgent Priority 2: Yes Provider Notified: Marily Reed Provider Notified Time: 19:00 Criteria Met for Priority 2: decreased movement Disposition - Disposition OB Disposition: Discharge to home Discharge Date: 06/25/21 Discharge Time: 19:08 I agree with the RN Medical Screening Exam: Yes Case reviewed; plan agreed upon as documented in EMR&OBIX.: Yes Diagnosis: DECREASED MOVEMENTS, THIRD TRIMESTER, FETUS 1
== END 2021-06-25 19:08 | disposition home or self-care (01) ==
LOC: FBPOP 18:19
PROVIDERS: ATTEND Obstetrics & Gynecology
DX: O36.8130 Decreased fetal movements, third trimester, not applicable or unspecified (principal); Z3A.32 32 weeks gestation of pregnancy; Z87.891 Personal history of nicotine dependence
CPT/HCPCS: 59025; 84112; G0463; 99213

== ENCOUNTER 2021-07-01 17:39 | Outpatient (CLI) | payer OTHER ==
[2021-07-01 18:21] VITALS: BP 123/76; PULSE 97; RESP 18; TEMP 96.6
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
== END 2021-07-01 18:20 | disposition home or self-care (01) ==
LOC: FBPOP 17:39
PROVIDERS: ATTEND Obstetrics & Gynecology
DX: O36.8131 Decreased fetal movements, third trimester, fetus 1 (principal); Z3A.33 33 weeks gestation of pregnancy; Z87.891 Personal history of nicotine dependence
CPT/HCPCS: 59025; G0463; 99213

== ENCOUNTER 2021-08-03 08:20 | Inpatient (IN) | payer OTHER ==
[2021-08-03 10:33] LABS: Appearance,Urine Clear (Clear); Bilirubin,Urine Negative (Negative); Blood,Urine Negative (Negative); Color,Urine Light Yellow; Glucose,Urine (UA) Negative (Negative); Ketones,Urine Negative (Negative); Leukocyte Esterase,Urine Negative (Negative); Nitrite,Urine Negative (Negative); PH, Urine 5.5 (5.0-8.0); Protein,Urine Negative (Negative); Specific Gravity,Urine 1.007 (1.001-1.035); Urobilinogen,Urine <2.0 mg/dL (<2.0)
[2021-08-03 10:36] LABS: Basophils % (A) 0 %; Eosinophils % (A) 0 %; HCT 37.3 % (34.0-46.0); HGB 11.6 gm/dL (11.4-16.0); Hypochromasia Moderate; Lymphocytes # (A) 2.5 k/uL (1.0-4.8); Lymphocytes % (A) 26 %; MCH 26.7 pg (25.0-35.0); MCHC 31.2 g/dL (31.0-37.0); MCV 85.8 fL (80.0-100.0); Mean Platelet Volume 10.5; Monocytes # (A) 0.4 k/uL (0-1.0); Monocytes % (A) 4 %; Neutrophils # (A) 6.4 k/uL (1.3-7.7); Neutrophils % (A) 67 %; Platelet Count 203 k/uL (150-450); RBC 4.35 m/uL (3.80-5.40); RDW 14.4 % (11.5-15.5); WBC 9.5 k/uL (3.8-10.6)
[2021-08-03 10:40] LABS: INR 0.8 (<1.2); Partial Thromboplastin Time 22.5 sec (22.0-30.0); Prothrombin Time 9.4 sec (9.0-12.0)
[2021-08-03 10:42] LABS: ALT 14 U/L (4-34); AST 28 U/L (14-36); African American GFR (CKD) >90 (>60 ml/min/1.73 sqM); Blood Urea Nitrogen 12 mg/dL (7-17); LDH 539 U/L (313-618); Non-African American GFR(CKD) >90 (>60 ml/min/1.73 sqM); Uric Acid 6.5 mg/dL (3.7-7.4)
[2021-08-03 11:14] LABS: Creatinine,Urine Random 51.5 mg/dL; Protein/Creatinine Ratio,Urine 0.214
[2021-08-03] MEDS ORDERED: TERBUTALINE 1 MG/ML VIAL SQ PRN (11:21)
[2021-08-03] MEDS ORDERED: LIDOCAINE 0.5% (PF) 5 MG/ML (50 ML SDV) SQ PRN (11:21)
[2021-08-03] MEDS ORDERED: CARBOPROST TROMETHAMINE 250 MCG/ML 1 ML AMP IM PRN (11:21)
[2021-08-03] MEDS ORDERED: OXYTOCIN 10 UNIT/ML 1 ML VIAL IM PRN (11:21)
[2021-08-03] MEDS ORDERED: METHYLERGONOVINE 0.2 MG/ML 1 ML AMP IM PRN (11:21)
[2021-08-03] MEDS: LACTATED RINGERS 1,000 ML IV SCH ×2 (12:19→14:19)
[2021-08-03] MEDS: OXYTOCIN 30 UNITS/500 ML NS 30 UNIT in SALINE 1 500ML.BAG IV SCH ×2 (12:20→19:02)
[2021-08-03] MEDS ORDERED: BUTORPHANOL 1 MG/ML 1 ML VIAL IV PRN (12:54)
[2021-08-03] MEDS ORDERED: SODIUM CHLORIDE 0.9% 100 ML BAG ONE (13:51)
[2021-08-03] MEDS ORDERED: fentaNYL (PF) 50 MCG/ML 5 ML AMP ONE (13:51)
[2021-08-03] MEDS ORDERED: ROPIVACAINE 5MG/ML 20ML VIAL ONE (13:51)
[2021-08-03] MEDS ORDERED: LANOLIN CREAM 5 GM TUBE TOPICAL PRN (16:15)
[2021-08-03] MEDS ORDERED: diphenhydrAMINE 50 MG CAP PO PRN (16:15)
[2021-08-03] MEDS ORDERED: SIMETHICONE 80 MG CHEWABLE PO PRN (16:15)
[2021-08-03] MEDS ORDERED: diphenhydrAMINE 50 MG/ML 1 ML VIAL IVP PRN ×2 (16:15)
[2021-08-03] MEDS ORDERED: ZOLPIDEM 5 MG TAB PO PRN (16:15)
[2021-08-03] MEDS ORDERED: BENZOCAINE/MENTHOL SPRAY 1 GM/SPRAY AEROSOL TOPICAL PRN (16:15)
[2021-08-03] MEDS ORDERED: HYDROCORTISONE 2.5% RECTAL CREAM 30 GM TUBE RECTAL PRN (16:15)
[2021-08-03] MEDS ORDERED: diphenhydrAMINE 25 MG CAP PO PRN (16:15)
--- NOTE | 2021-08-03 17:40 | P.HPOB ---
History of Present Illness H&P Date: 08/03/21 Chief Complaint: Contractions This patient is a pleasant 21-year-old 3 para 2 female estimated date of confinement 08/14/2021 estimated gestational age 38-3/7 weeks who presented to labor and delivery earlier today with complaints of contractions. Patient was having some contractions however cervix was still 3 cm dilated however blood pressure was elevated. Patient had been in the office the day before her blood pressure was normal. Serial blood pressure show persistent elevation consistent with gestational hypertension. Preeclampsia labs were negative. care is per Dr. Ricks and it appears to be uncomplicated. Review of Systems Genitourinary: Reports Menstruation: Reports amenorrhea Past Medical History Past Medical History: No Reported History Additional Past Medical History / Comment(s): A+GBS neg. History of Any Multi-Drug Resistant Organisms: None Reported Past Surgical History: No Surgical Hx Reported Past Anesthesia/Blood Transfusion Reactions: No Reported Reaction Past Psychological History: No Psychological Hx Reported Smoking Status: Former smoker Past Alcohol Use History: None Reported Past Drug Use History: None Reported - Past Family History Mother History Unknown: Yes Family Medical History: No Reported History Medications and Allergies Home Medications Medication Instructions Recorded Confirmed Type No Known Home Medications 07/01/21 08/03/21 History Allergies Allergy/AdvReac Type Severity Reaction Status Date / Time No Known Allergies Allergy Verified 08/03/21 08:38 Exam Vital Signs Temp Pulse Resp BP Pulse Ox 08/03/21 17:00 56 L 122/86 08/03/21 16:45 58 L 137/60 08/03/21 16:30 53 L 134/82 08/03/21 16:15 71 132/83 08/03/21 16:00 97.3 F L 67 18 137/74 98 08/03/21 13:00 97.5 F L 108 H 18 136/89 99 08/03/21 10:26 97.5 F L 108 H 18 136/89 99 Intake and Output 08/03/21 08/03/21 08/03/21 06:59 14:59 22:59 Other: Weight 59.874 kg - OBG Physical Exam Abdomen: bowel sounds normal, no diffuse tenderness, no bruit present, no guarding noted, no hepatomegaly, no splenomegaly, no mass Vagina: normal moisture, no discharge Cervix: no lesion (Cervix is 3 cm dilated and thick.), no discharge Uterus: enlarged Results blood work shows she is A positive, rubella immune, RPR is nonreactive, group B strep was negative, HIV is nonreactive, Glucola was normal, anatomy ultrasounds have been normal. Result Diagrams: 08/03/21 10:08 08/03/21 10:08 Abnormal Lab Results - Last 24 Hours (Table) 08/03/21 Range/Units 10:08 Fibrinogen 518 H (200-500) mg/dL Assessment and Plan Assessment: This is a pleasant 21-year-old 3 para 2 female 38-3/7 weeks presents to labor and delivery of contractions. Patient is most likely in early labor but more importantly her blood pressure is elevated persistently consistent with ges tational hypertension. Preeclampsia labs are normal plan is artificial rupture membranes and augmentation of labor and anticipate vaginal delivery. (1) 38 weeks gestation of Current Visit: Yes Status: Acute Code(s): Z3A.38 - 38 WEEKS GESTATION OF SNOMED Code(s): 35193206 (2) Gestational hypertension Current Visit: Yes Status: Acute Code(s): O13.9 - GESTATIONAL HTN W/O SIGNIFICANT PROTEINURIA, UNSP TRIMESTER SNOMED Code(s): 68566493 (3) Normal labor Current Visit: No Status: Resolved Code(s): O80 - ENCOUNTER FOR FULL-TERM UNCOMPLICATED DELIVERY; Z37.9 - OUTCOME OF DELIVERY, UNSPECIFIED SNOMED Code(s): 71787992
--- NOTE | 2021-08-03 17:44 | P.PROBDLV ---
Vaginal Delivery Note - . Vaginal Delivery Note: Normal vaginal delivery viable female Apgars are 9 and 9 delivery time is 1550 hrs. Please see dictated H&P for intimate details of this patient's admission. In brief summary this is a pleasant 21-year-old 3 para 2 female 38-3/7 weeks gestation who is admitted to labor and delivery complaints of contractions and also found to have elevated blood pressures. Patient's preeclampsia labs are normal. Patient has artificial rupture membranes at 3 cm dilated for clear fluid. Labor is induced with Pitocin per protocol. She does progress and gets an epidural for pain control. Patient thereafter does go quickly gets to complete. She pushes the head to the perineum and the posterior perineum is supported. We have controlled delivery of the infant's head over the intact perineum. Mouth and nares are bulb suctioned. Infant's head is straight occiput anterior presentation. There is a nuchal cord 1 which is reduced. With gentle downward traction we then have deliver the anterior and posterior shoulder and rest this 's body. This is a vigorous viable female infant Apgars are 9 and 9 delivery time was 1550 hrs. Due to history of previous jaundice the umbilical cord was immediately clamped and cut appears to be trivascular. The placenta is then spontaneously delivered intact. Estimated blood loss is approximately 100 mL. There are no lacerations and no repair. and mother are stable in delivery room. All counts correct 3. There are no complications.
--- NOTE | 2021-08-03 18:37 | P.MSEPDOC ---
Presenting Problems - Arrival Data Date of Arrival on Unit: 08/03/21 Time of Arrival on Unit: 12:00 Mode of Transport: Ambulatory - Complaint OB-Reason for Admission/Chief Complaint: Possible Onset of Labor Medical History - Information : 3 Para: 2 Term: 2 : 0 Abortions: Spontaneous or Elective: 0 Number of Living Children: 2 - Gestational Age Gestational Age by JOHNATHON (wks/days): 38 Weeks and 3 Days Review of Systems - Review of Systems Constitutional: No problems Breast: No problems ENT: No problems Cardiovascular: No problems Respiratory: No problems Gastrointestinal: No problems Genitourinary: No problems Musculoskeletal: No problems Neurological: No problems Skin: No problems Vital Signs - Temperature Temperature: 97.3 F Temperature Source: Temporal Artery Scan - Pulse Right Pulse Rate: 64 Pulse Assessment Method: Automatic Cuff - Respirations Respiratory Rate: 18 Oxygen Delivery Method: Room Air O2 Sat by Pulse Oximetry: 98 - Blood Pressure Right Arm Blood Pressure: 137/68 Blood Pressure Mean: 91 Blood Pressure Source: Automatic Cuff Medical Screen Scoring - Cervical Exam Dilation (cm): 3.5 Effacement (%): 60 Station: -2 Membranes: Intact - Uterine Contractions Frequency From (mins): 10 Frequency To (mins): 15 Duration From (seconds): 70 Duration To (seconds): 90 Intensity: Moderate Resting: Soft to palpation - Assessment - Baby A Baseline FHR: 125 Heart Rate - NICHD Category: Category II (Indeterminate) NST: Reactive Physician Notification - Physician Notified Physician Notified Date: 08/03/21 Physician Notified Time: 09:50 Physician: Teddy Faust New Order Received: Yes - Notification Comment Comment: RN reported to Dr. Faust regarding maternal/ status, cervical exam, BP. elevated. RN to order and perform PIH workup, serial pressures, recheck cervix in 1. hour, NST. Maternal Triage Index - Maternal Triage Index Presenting for scheduled procedure w/no complaint: No - Stat/Priority 1 Stat Priority 1: No - Urgent/Priority 2 Urgent Priority 2: Yes Provider Notified: Teddy Faust Provider Notified Time: 09:50 Criteria Met for Priority 2: Repeat BPs are >140 SBP and >90 DBP with more than one BP check. When asked, pt has complaints/signs of pre-eclampsia including PUENTE, vision changes, epigastric pain, and nausea. Disposition - Disposition OB Disposition: Observe I agree with the RN Medical Screening Exam: Yes Case reviewed; plan agreed upon as documented in EMR&OBIX.: Yes Diagnosis: GESTATIONAL HTN W/O SIGNIFICANT PROTEINURIA, THIRD TRIMESTER (Please see dictated admission history and physical. Patient is admitted with gestational hypertension in labor.)
[2021-08-03] MEDS: SENNOSIDES-DOCUSATE SODIUM 1 EACH TAB PO SCH (20:00)
[2021-08-03] MEDS: IBUPROFEN 600 MG TAB PO PRN (20:08)
[2021-08-04] MEDS: ACETAMINOPHEN TAB 325 MG TAB PO PRN ×3 (02:46→23:17)
--- NOTE | 2021-08-04 07:17 | P.PNOBGVD ---
Subjective - Subjective Patient reports: Reports appetite normal, Reports voiding normally, Reports pain well controlled, Reports ambulating normally : doing well Objective - Latest Vital Signs Latest vital signs: Vital Signs Temp Pulse Resp BP Pulse Ox 08/04/21 04:00 97.6 F 54 L 14 116/58 97 08/04/21 00:00 97.7 F 65 16 115/68 95 08/03/21 20:00 97.9 F 54 L 14 149/88 98 08/03/21 18:37 97.3 F L 64 18 137/68 98 08/03/21 18:00 97.1 F L 71 18 136/71 99 08/03/21 17:30 64 137/68 08/03/21 17:00 56 L 122/86 08/03/21 16:45 58 L 137/60 08/03/21 16:30 53 L 134/82 08/03/21 16:15 71 132/83 08/03/21 16:00 97.3 F L 67 18 137/74 98 08/03/21 13:00 97.5 F L 108 H 18 136/89 99 08/03/21 10:26 97.5 F L 108 H 18 136/89 99 Intake and Output 08/03/21 08/04/21 08/04/21 22:59 06:59 14:59 Intake Total 13.4 Output Total 800 Balance -786.6 Intake: Intake, IV Titration 13.4 Amount Oxytocin 30 Units/500 ml 13.4 Ns 30 unit In Saline 1 500ml.bag @ Per Protocol IV .Q0M [facility] Rx#:[id number] Output: Urine 800 Straight 800 Other: # Voids 1 - Exam Lungs: bilateral: normal Chest: Normal S1, Normal S2 Extremities: Present: normal Abdomen: Present: normal appearance, soft Uterus: Present: normal, firm - Labs Labs: Abnormal Lab Results - Last 24 Hours (Table) 08/03/21 Range/Units 10:08 Fibrinogen 518 H (200-500) mg/dL Assessment and Plan Assessment: day #1. Patient is resting without complaints and wishes to go home. Vital signs are stable and she is afebrile. Uterus is firm nontender and she is having normal lochia. My impression is a normal course. Plan is to continue routine care and discharge home later today (1) 38 weeks gestation of Current Visit: Yes Status: Acute Code(s): Z3A.38 - 38 WEEKS GESTATION OF SNOMED Code(s): 98633393 (2) Gestational hypertension Current Visit: Yes Status: Acute Code(s): O13.9 - GESTATIONAL HTN W/O SIGNIFICANT PROTEINURIA, UNSP TRIMESTER SNOMED Code(s): 43161788 (3) Normal labor Current Visit: No Status: Resolved Code(s): O80 - ENCOUNTER FOR FULL-TERM UNCOMPLICATED DELIVERY; Z37.9 - OUTCOME OF DELIVERY, UNSPECIFIED SNOMED Code(s): 02099290
--- NOTE | 2021-08-04 07:21 | P.DS ---
Providers Date of admission: 08/03/21 11:22 Expected date of discharge: 08/04/21 Attending physician: Berenice Ricks Primary care physician: Berenice Ricks - Discharge Diagnosis(es) (1) 38 weeks gestation of Current Visit: Yes Status: Acute (2) Gestational hypertension Current Visit: Yes Status: Acute (3) Normal labor Current Visit: No Status: Resolved Hospital Course: Please see dictated H&P for intimate details of this patient's admission. Brief summary this is a pleasant 21-year-old 3 para 2 female admitted to labor and delivery with complaints of contractions found to be in active labor and al so had elevated blood pressures. Preeclampsia evaluation was negative and she quickly went on to have a vaginal delivery viable female . The see dictated delivery note. day #1 patient's felt be stable for discharge home follow Dr. Mcdonald in 6 weeks. Procedures: Normal vaginal delivery Patient Condition at Discharge: Good Plan - Discharge Summary New Discharge Prescriptions: New Ibuprofen [Motrin] 600 mg PO Q6HR PRN #30 tab PRN Reason: Mild Pain (Scale 1 To 3) Discharge Medication List Ibuprofen [Motrin] 600 mg PO Q6HR PRN #30 tab 08/04/21 [Rx] Follow up Appointment(s)/Referral(s): Teddy Faust MD [STAFF PHYSICIAN] - 6 Weeks (Please call the office to see Dr. Ricks in approximately 6 weeks for check) Patient Instructions/Handouts: Vaginal Delivery (DC) Activity/Diet/Wound Care/Special Instructions: No intercourse or anything per vagina for 6 weeks. Please call if any fever, chills, excessive vaginal bleeding, and/or abdominal pain. Discharge Disposition: HOME SELF-CARE
[2021-08-04 07:45] LABS: Basophils % (A) 0 %; Eosinophils # (A) 0.1 k/uL (0-0.7); Eosinophils % (A) 1 %; HCT 31.7 % (34.0-46.0); Hypochromasia Moderate; Lymphocytes % (A) 32 %; MCH 26.7 pg (25.0-35.0); MCHC 31.2 g/dL (31.0-37.0); MCV 85.8 fL (80.0-100.0); Mean Platelet Volume 11.1; Monocytes # (A) 0.5 k/uL (0-1.0); Monocytes % (A) 5 %; Neutrophils # (A) 5.7 k/uL (1.3-7.7); Neutrophils % (A) 60 %; Platelet Count 158 k/uL (150-450); RDW 14.5 % (11.5-15.5); WBC 9.5 k/uL (3.8-10.6)
[2021-08-04 07:48] LABS: HGB 9.9 gm/dL (11.4-16.0)
[2021-08-04] MEDS: IBUPROFEN 600 MG TAB PO PRN ×2 (08:59→19:28)
[2021-08-04] MEDS: SENNOSIDES-DOCUSATE SODIUM 1 EACH TAB PO SCH ×2 (08:59→19:28)
--- NOTE | 2021-08-05 07:34 | P.PNOBGVD ---
Subjective - Subjective Patient reports: Reports appetite normal, Reports voiding normally, Reports pain well controlled, Reports ambulating normally : doing well Objective - Latest Vital Signs Latest vital signs: Vital Signs Temp Pulse Resp BP Pulse Ox 08/05/21 00:00 62 16 138/83 08/04/21 20:00 98.4 F 59 L 16 145/75 08/04/21 16:45 156/82 08/04/21 16:00 97.6 F 85 18 147/82 99 08/04/21 09:15 97.8 F 51 L 18 117/66 97 Intake and Output 08/04/21 08/05/21 08/05/21 22:59 06:59 14:59 Other: # Voids 2 3 - Exam Lungs: bilateral: normal Chest: Normal S1, Normal S2 Extremities: Present: normal Abdomen: Present: normal appearance, soft Uterus: Present: normal, firm - Labs Labs: Abnormal Lab Results - Last 24 Hours (Table) 08/04/21 Range/Units 07:33 RBC 3.70 L (3.80-5.40) m/uL Hgb 9.9 L D (11.4-16.0) gm/dL Hct 31.7 L (34.0-46.0) % Assessment and Plan Assessment: day #2. Patient was going to go home yesterday however did develop some mild blood pressure elevations therefore asked her to stay for closer observation overnight. Blood pressures today are good and did not require treatment. I feel she is stable for discharge home therefore we'll continue routine care discharge home later today (1) 38 weeks gestation of Current Visit: Yes Status: Acute Code(s): Z3A.38 - 38 WEEKS GESTATION OF SNOMED Code(s): 25971860 (2) Gestational hypertension Current Visit: Yes Status: Acute Code(s): O13.9 - GESTATIONAL HTN W/O SI GNIFICANT PROTEINURIA, UNSP TRIMESTER SNOMED Code(s): 13972027 (3) Normal labor Current Visit: No Status: Resolved Code(s): O80 - ENCOUNTER FOR FULL-TERM UNCOMPLICATED DELIVERY; Z37.9 - OUTCOME OF DELIVERY, UNSPECIFIED SNOMED Code(s): 76489309
[2021-08-05 08:18] VITALS: BP 121/62; PULSE 56; RESP 14; TEMP 98.3
[2021-08-05] MEDS: SENNOSIDES-DOCUSATE SODIUM 1 EACH TAB PO SCH (08:18)
[2021-08-05] MEDS: IBUPROFEN 600 MG TAB PO PRN (08:29)
== END 2021-08-05 12:00 | disposition home or self-care (01) | DRG 807 ==
LOC: FBPOP 08:20 → 4FBP 11:22
PROVIDERS: ADMIT Obstetrics & Gynecology; ATTEND Obstetrics & Gynecology
PROC: 10E0XZZ Delivery of Products of Conception, External Approach (ICD-10-PCS; principal; 2021-08-03)
DX: O13.4 Gestational [pregnancy-induced] hypertension without significant proteinuria, complicating childbirth (principal); Z37.0 Single live birth; O69.81X0 Labor and delivery complicated by cord around neck, without compression, not applicable or unspecified; Z3A.38 38 weeks gestation of pregnancy; Z87.891 Personal history of nicotine dependence
CPT/HCPCS: 59025; 81003; 82565; 82570; 83615; 84156; 84450; 84460; 84520; 84550; 85025; 85384; 85610; 85730; 86850; 86900; 86901; 88307; 99213

== ENCOUNTER 2022-09-29 15:33 | Emergency (ER) | payer OTHER ==
[2022-09-29 15:52] VITALS: RESP 18
--- NOTE | 2022-09-29 16:35 | ED ---
General Adult HPI - General Chief complaint: Abdominal Pain Stated complaint: Cramping; recent + preg test Time Seen by Provider: 09/29/22 15:56 Source: patient Mode of arrival: ambulatory Limitations: no limitations - History of Present Illness Initial comments: Dictation was produced using [employer] dictation software. please excuse any grammatical, word or spelling errors. Chief Complaint: 22-year-old female presents emergency department for abdominal pain and History of Present Illness: 22-year-old female she has 3 children. She has not had a period in several weeks. She tested positive for at home at [facility] times. Patient started having some vaginal bleeding and pelvic cramping. The ROS documented in this emergency department record has been reviewed and confirmed by me. Those systems with pertinent positive or negative responses have been documented in the HPI. All other systems are other negative and/or noncontributory. - Related Data Previous Rx's Medication Instructions Recorded Ibuprofen [Motrin] 600 mg PO Q6HR PRN #30 tab 08/04/21 Allergies Allergy/AdvReac Type Severity Reaction Status Date / Time No Known Allergies Allergy Verified 09/29/22 15:52 Review of Systems ROS Statement: Those systems with pertinent positive or pertinent negative responses have been documented in the HPI. ROS Other: All systems not noted in ROS Statement are negative. Past Medical History Past Medical History: No Reported History Additional Past Medical History / Comment(s): A+GBS neg. History of Any Multi-Drug Resistant Organisms: None Reported Past Surgical History: No Surgical Hx Reported Past Anesthesia/Blood Transfusion Reactions: No Reported Reaction Past Psychological History: No Psychological Hx Reported Smoking Status: Former smoker Past Alcohol Use History: None Reported Past Drug Use History: None Reported - Past Family History Mother History Unknown: Yes Family Medical History: No Reported History General Exam - General Exam Comments Initial Comments: PHYSICAL EXAM: General Impression: Alert and oriented x3, not in acute distress HEENT: Normocephalic atraumatic, extra-ocular movements intact, pupils equal and reactive to light bilaterally, mucous membranes moist. Cardiovascular: Heart regular rate and rhythm Chest: Able to complete full sentences, no retractions, no tachypnea Abdomen: abdomen soft, non-tender, non-distended, no organomegaly Musculoskeletal: Pulses present and equal in all extremities, no peripheral edema Motor: no focal deficits noted Neurological: CN II-XII grossly intact, no focal motor or sensory deficits noted Skin: Intact with no visualized rashes Psych: Normal affect and mood Pelvic exam: Refused Limitations: no limitations Course Vital Signs 09/29/22 15:47 Temperature 98.7 F Pulse Rate 88 Respiratory 18 Rate Blood Pressure 121/82 O2 Sat by Pulse 97 Oximetry Medical Decision Making - Medical Decision Making Was pt. sent in by a medical professional or institution (, PA, ORDERLY, urgent care, hospital, or [facility]...) When possible be specific @ -No Did you speak to anyone other than the patient for history (EMS, parent, family, police, friend...)? What history was obtained from this source @ -No Did you review nursing and triage notes (agree or disagree)? Why? @ -I reviewed and agree with nursing and triage notes Were old charts reviewed (outside hosp., previous admission, EMS record, old EKG, old radiological studies, urgent care reports/EKG's, [facility] records)? Report findings @ -No old charts were reviewed Differential Diagnosis (chest pain, altered mental status, abdominal pain women, abdominal pain men, vaginal bleeding, musculoskeletal, weakness, fever, dyspnea, syncope, headache, dizziness, GI bleed, back pain, seizure, CVA, palpatations, mental health)? @ -Differential Vaginal Bleeding: Spontaneous , threatened , molar , ectopic , bloody show, incompetent cervix, abruptioplacenta, placenta previa, uterine rupture, dysfunctional uterine bleeding, hemorrhage, uterine fibroids, this is not meant to be an all-inclusive list. EKG interpreted by me (3pts min.). @ -None done X-rays interpreted by me (1pt min.). @ -None done CT interpreted by me (1pt min.). @ -None done U/S interpreted by me (1pt. min.). @ -Pelvic ultrasound shows no intrauterine What testing was considered but not performed or refused? (CT, X-rays, U/S, labs)? Why? @ -None What meds were considered but not given or refused? Why? @ -None Did you discuss the management of the patient with other professionals (professionals i.e. , PA, ORDERLY, lab, RT, psych nurse, director of social work, school operations manager, teacher, property utilization officer, supportive employment case manager)? Give summary @ -No Was smoking cessation discussed for >3mins.? @ -No Was critical care preformed (if so, how long)? @ -No Were there social determinants of health that impacted care today? How? (Homelessness, low income, unemployed, alcoholism, drug addiction, transportation, low edu. Level, literacy, decrease access to med. care, skilled nursing, rehab)? @ -No Was there de-escalation of care discussed even if they declined (Discuss DNR or withdrawal of care, Hospice)? DNR status @ -No What co-morbidities impacted this encounter? (DM, HTN, Smoking, COPD, CAD, Cancer, CVA, ARF, Chemo, Hep., AIDS, mental health diagnosis, sleep apnea, morbid obesity)? @ -None Was patient admitted / discharged? Hospital course, mention meds given and route, prescriptions, significant lab abnormalities, going to OR and other pertinent info. @ -42-year-old female presents emergency department for vaginal bleeding and . Vital signs are stable. Patient refused pelvic exam. Laboratory evaluation obtained. CBC, coag panel, metabolic panel is unremarkable. Beta Quant is 38.2. Ultrasound shows no intrauterine . Patient is Rh+. At this point is unclear patient is early in or is miscarrying. She is ordered for 48-hour hCG level told to follow-up with gynecology Undiagnosed new problem with uncertain prognosis? @ -No Drug Therapy requiring intensive monitoring for toxicity (Heparin, Nitro, Insulin, Cardizem)? @ -No Were any procedures done? @ -No Diagnosis/symptom? Acute, or Chronic, or Acute on Chronic? Uncomplicated (without systemic symptoms) or Complicated (systemic symptoms)? @ -1. Threatened Side effects of treatment? @ -No Exacerbation, Progression, or Severe Exacerbation? @ -No Poses a threat to life or bodily function? How? (Chest pain, USA, [place], pneumonia, PE, COPD, DKA, ARF, appy, cholecystitis, CVA, Diverticulitis, Homicidal, Suicidal, threat to staff... and all critical care pts) @ -No - Lab Data Result diagrams: 09/29/22 16:32 09/29/22 16:32 Lab Results 09/29/22 09/29/22 09/29/22 Range/Units 16:30 16:32 16:32 WBC 7.7 (3.8-10.6) k/uL RBC 4.00 (3.80-5.40) m/uL Hgb 12.9 (11.4-16.0) gm/dL Hct 37.1 (34.0-46.0) % MCV 92.8 (80.0-100.0) fL MCH 32.3 (25.0-35.0) pg MCHC 34.8 (31.0-37.0) g/dL RDW 12.7 (11.5-15.5) % Plt Count 190 (150-450) k/uL MPV 8.5 Neutrophils % 66 % Lymphocytes % 25 % Monocytes % 5 % Eosinophils % 1 % Basophils % 1 % Neutrophils # 5.1 (1.3-7.7) k/uL Lymphocytes # 1.9 (1.0-4.8) k/uL Monocytes # 0.4 (0-1.0) k/uL Eosinophils # 0.1 (0-0.7) k/uL Basophils # 0.1 (0-0.2) k/uL PT 10.6 (9.0-12.0) sec INR 1.0 (<1.2) APTT 22.2 (22.0-30.0) sec Sodium (137-145) mmol/L Potassium (3.5-5.1) mmol/L Chloride (98-107) mmol/L Carbon Dioxide (22-30) mmol/L Anion Gap mmol/L BUN (7-17) mg/dL Creatinine (0.52-1.04) mg/dL Est GFR (CKD-EPI)AfAm (>60 ml/min/1.73 sqM) Est GFR (CKD-EPI)NonAf (>60 ml/min/1.73 sqM) Glucose (74-99) mg/dL Calcium (8.4-10.2) mg/dL HCG, Quant mIU/mL Blood Type A Positive Blood Type Recheck A Pos Bld Type Recheck Status No Antibody Screen NEGATIVE Spec Expiration Date 10/02/2022 - 232909/29/22 Range/Units 16:32 WBC (3.8-10.6) k/uL RBC (3.80-5.40) m/uL Hgb (11.4-16.0) gm/dL Hct (34.0-46.0) % MCV (80.0-100.0) fL MCH (25.0-35.0) pg MCHC (31.0-37.0) g/dL RDW (11.5-15.5) % Plt Count (150-450) k/uL MPV Neutrophils % % Lymphocytes % % Monocytes % % Eosinophils % % Basophils % % Neutrophils # (1.3-7.7) k/uL Lymphocytes # (1.0-4.8) k/uL Monocytes # (0-1.0) k/uL Eosinophils # (0-0.7) k/uL Basophils # (0-0.2) k/uL PT (9.0-12.0) sec INR (<1.2) APTT (22.0-30.0) sec Sodium 139 (137-145) mmol/L Potassium 4.4 (3.5-5.1) mmol/L Chloride 107 (98-107) mmol/L Carbon Dioxide 22 (22-30) mmol/L Anion Gap 10 mmol/L BUN 15 (7-17) mg/dL Creatinine 0.48 L (0.52-1.04) mg/dL Est GFR (CKD-EPI)AfAm >90 (>60 ml/min/1.73 sqM) Est GFR (CKD-EPI)NonAf >90 (>60 ml/min/1.73 sqM) Glucose 95 (74-99) mg/dL Calcium 8.9 (8.4-10.2) mg/dL HCG, Quant 38.2 mIU/mL Blood Type Blood Type Recheck Bld Type Recheck Status Antibody Screen Spec Expiration Date Disposition Clinical Impression: Vaginal bleeding affecting early Disposition: HOME SELF-CARE Condition: Fair Instructions (If sedation given, give patient instructions): Threatened Miscarriage (ED) Is patient prescribed a controlled substance at d/c from ED?: No Referrals: Kevin Elias MD [Primary Care Provider] - 1-2 days Time of Disposition: 18:01
[2022-09-29 17:00] LABS: Basophils # (A) 0.1 k/uL (0-0.2); Basophils % (A) 1 %; Eosinophils # (A) 0.1 k/uL (0-0.7); Eosinophils % (A) 1 %; HCT 37.1 % (34.0-46.0); HGB 12.9 gm/dL (11.4-16.0); Lymphocytes # (A) 1.9 k/uL (1.0-4.8); Lymphocytes % (A) 25 %; MCH 32.3 pg (25.0-35.0); MCHC 34.8 g/dL (31.0-37.0); MCV 92.8 fL (80.0-100.0); Mean Platelet Volume 8.5; Monocytes # (A) 0.4 k/uL (0-1.0); Monocytes % (A) 5 %; Neutrophils # (A) 5.1 k/uL (1.3-7.7); Neutrophils % (A) 66 %; Platelet Count 190 k/uL (150-450); RDW 12.7 % (11.5-15.5); WBC 7.7 k/uL (3.8-10.6)
[2022-09-29 17:05] LABS: Partial Thromboplastin Time 22.2 sec (22.0-30.0); Prothrombin Time 10.6 sec (9.0-12.0)
[2022-09-29 17:06] LABS: African American GFR (CKD) >90 (>60 ml/min/1.73 sqM); Anion Gap 10 mmol/L; Blood Urea Nitrogen 15 mg/dL (7-17); Calcium 8.9 mg/dL (8.4-10.2); Carbon Dioxide 22 mmol/L (22-30); Chloride 107 mmol/L (98-107); Glucose 95 mg/dL (74-99); Non-African American GFR(CKD) >90 (>60 ml/min/1.73 sqM); Potassium 4.4 mmol/L (3.5-5.1); Sodium 139 mmol/L (137-145)
[2022-09-29 17:21] LABS: HCG,Quantitative Serum 38.2 mIU/mL
--- NOTE | 2022-09-29 17:22 | US ---
EXAMINATION TYPE: Transabdominal DATE OF EXAM: 09/29/2022 5:13 PM COMPARISON: NONE CLINICAL INDICATION: Female, 22 years old with history of pelvic pain; patient states positive pregna ncy test at home, , cramping x 1 day EXAM PERFORMED: OBTA EXAM MEASUREMENTS: GESTATIONAL AGE / DATING Physician Established: Not yet established Dates by LMP: ( 4 weeks/6 days) EDC: 06/02/2023 Dates by First Scan: No previous this is first scan Dates by Current Scan for: Unable to date by today's study MATERNAL ANATOMY Uterus: 8.4 x 5.6 x 4.4cm Right Ovary: 2.0 x 1.5 x 1.3cm Left Ovary: 2.3 x 2.5 x 1.3cm Post CDS / Adnexa: wnl Presence of free fluid: no Presence of corpus luteal cyst: not seen Presence of subchorionic bleed: no GESTATION / SURVEY IUP: No IUP seen at this time Date of LMP: 08/26/2022 Beta HcG (if available): pending IMPRESSION: No evidence of intrauterine gestational sac. This can be seen in early , ectopic a nd spontaneous . Follow up pelvic ultrasound in 5-7 days and serial beta hCG studies are gerald mmended.
[2022-09-29 18:45] VITALS: BP 101/62; PULSE 76; TEMP 98.2
== END 2022-09-29 18:45 | disposition home or self-care (01) ==
LOC: EC 15:33
DX: O20.0 Threatened abortion (principal); Z87.891 Personal history of nicotine dependence; Z3A.01 Less than 8 weeks gestation of pregnancy
CPT/HCPCS: 36415; 76801; 80048; 84702; 85025; 85610; 85730; 86850; 86900; 86901; 99284

== ENCOUNTER → 2022-10-02 | Outpatient (CLI) | payer OTHER | END | disposition home or self-care (01) | LOC: LABWHC1 07:52 | PROVIDERS: ATTEND Emergency Medicine | DX: Z32.01 Encounter for pregnancy test, result positive (principal); R25.2 Cramp and spasm | CPT/HCPCS: 36415; 84702 ==

== ENCOUNTER 2022-10-13 16:45 | Emergency (ER) | payer OTHER ==
[2022-10-13 16:53] VITALS: TEMP 98.6
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
[2022-10-13 19:11] VITALS: BP 113/74; PULSE 87; RESP 18
[2022-10-13 19:35] LABS: Appearance,Urine Clear (Clear); Bilirubin,Urine Negative (Negative); Blood,Urine Negative (Negative); Color,Urine Colorless; Glucose,Urine (UA) Negative (Negative); Ketones,Urine Negative (Negative); Leukocyte Esterase,Urine Negative (Negative); Nitrite,Urine Negative (Negative); Protein,Urine Negative (Negative); Urobilinogen,Urine <2.0 mg/dL (<2.0)
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
== END 2022-10-13 19:48 | disposition home or self-care (01) ==
LOC: EC 16:45
DX: O26.891 Other specified pregnancy related conditions, first trimester (principal); M25.512 Pain in left shoulder; Z87.891 Personal history of nicotine dependence; Z3A.01 Less than 8 weeks gestation of pregnancy
CPT/HCPCS: 76801; 81003; 99284

== ENCOUNTER 2022-11-06 12:43 | Emergency (ER) | payer OTHER ==
[2022-11-06 14:26] LABS: Basophils % (A) 0 %; Eosinophils # (A) 0.2 k/uL (0-0.7); Eosinophils % (A) 3 %; HCT 39.2 % (34.0-46.0); HGB 13.3 gm/dL (11.4-16.0); Lymphocytes # (A) 1.6 k/uL (1.0-4.8); Lymphocytes % (A) 21 %; MCH 31.2 pg (25.0-35.0); MCHC 33.8 g/dL (31.0-37.0); MCV 92.4 fL (80.0-100.0); Monocytes # (A) 0.4 k/uL (0-1.0); Monocytes % (A) 6 %; Neutrophils # (A) 5.1 k/uL (1.3-7.7); Neutrophils % (A) 68 %; Platelet Count 205 k/uL (150-450); RBC 4.25 m/uL (3.80-5.40); RDW 12.8 % (11.5-15.5); WBC 7.4 k/uL (3.8-10.6)
[2022-11-06 14:29] LABS: ALT 21 U/L (4-34); AST 25 U/L (14-36); African American GFR (CKD) >90 (>60 ml/min/1.73 sqM); Albumin 4.4 g/dL (3.5-5.0); Alkaline Phosphatase 49 U/L (38-126); Anion Gap 9 mmol/L; Blood Urea Nitrogen 8 mg/dL (7-17); Calcium 8.8 mg/dL (8.4-10.2); Carbon Dioxide 19 mmol/L (22-30); Chloride 110 mmol/L (98-107); Glucose 103 mg/dL (74-99); Non-African American GFR(CKD) >90 (>60 ml/min/1.73 sqM); Potassium 3.9 mmol/L (3.5-5.1); Sodium 138 mmol/L (137-145); Total Bilirubin 0.4 mg/dL (0.2-1.3); Total Protein 7.4 g/dL (6.3-8.2)
[2022-11-06 14:45] LABS: HCG,Quantitative Serum 8707.7 mIU/mL
[2022-11-06 15:13] LABS: Appearance,Urine Clear (Clear); Bilirubin,Urine Negative (Negative); Blood,Urine Large (Negative); Color,Urine Yellow; Glucose,Urine (UA) Negative (Negative); Ketones,Urine Negative (Negative); Leukocyte Esterase,Urine Negative (Negative); Mucus,Urine Rare /hpf; Nitrite,Urine Negative (Negative); Protein,Urine Negative (Negative); RBC,Urine >182 /hpf (0-5); Specific Gravity,Urine 1.012 (1.001-1.035); Squamous Epithelial Cell,Urine 1 /hpf (0-4); Urobilinogen,Urine <2.0 mg/dL (<2.0); WBC,Urine 4 /hpf (0-5)
[2022-11-06] MEDS ORDERED: SODIUM CHLORIDE 0.9% 500 ML 500 ML IV STA (15:52)
[2022-11-06 16:20] VITALS: BP 108/66; PULSE 87; RESP 16; TEMP 98.7
--- NOTE | 2022-11-06 19:17 | US ---
EXAM: US First Trimester , Transabdominal CLINICAL HISTORY: ITS.REASON US Reason: vaginal bleeding, incomplete TECHNIQUE: Real-time transabdominal obstetrical ultrasound of the maternal pelvis and a first trimester with image documentation. COMPARISON: No relevant prior studies available. FINDINGS: Gestation: No IUP. According to the superintendent laundry's note, there was a gestational sac on the prior study, but images and report could not be made available due to technical issues. Uterus/cervix: As above. No clear myometrial mass. Ovaries: Unremarkable. Free fluid: Small amount of free pelvic fluid. IMPRESSION: No IUP. According to the superintendent laundry's note, there was a gestational sac on the prior study, but images and report could not be made available due to technical issues. Recommend clinical follow-up. Small amount of free pelvic fluid.
--- NOTE | 2022-11-06 19:46 | ED ---
General Adult HPI - General Chief complaint: Vaginal Bleeding Stated complaint: Miscarriage,Vaginal Bleeding Time Seen by Provider: 11/06/22 13:50 Source: patient Mode of arrival: wheelchair Limitations: no limitations - History of Present Illness Initial comments: The patient's a 22-year-old female who is 6-7 weeks with LMP 08/28 who presents with vaginal bleeding and miscarriage. The patient had hormones checked last week and they have dropped. Patient had worsening bleeding that started earlier today. She has passed multiple clots. She was sent in for further evaluation. Patient's hCG Quant last week was 17,000. She believes she is A+ blood type and has never had Rhogam with her previous pregnancies. She is scheduled for a D&C with Dr. Faust on Friday. She denies any fevers. Denies chest pain, palpitations, shortness breath, dizziness, near syncope. - Related Data Previous Rx's Medication Instructions Recorded Ibuprofen [Motrin] 600 mg PO Q6HR PRN #30 tab 08/04/21 [id number] Acid 1 each PO DAILY #30 cap 10/13/22 [-U Capsule] Allergies Allergy/AdvReac Type Severity Reaction Status Date / Time No Known Allergies Allergy Verified 11/06/22 13:13 Review of Systems ROS Statement: Those systems with pertinent positive or pertinent negative responses have been documented in the HPI. ROS Other: All systems not noted in ROS Statement are negative. Past Medical History Past Medical History: No Reported History Additional Past Medical History / Comment(s): A+GBS neg. History of Any Multi-Drug Resistant Organisms: None Reported Past Surgical History: No Surgical Hx Reported Past Anesthesia/Blood Transfusion Reactions: No Reported Reaction Past Psychological History: No Psychological Hx Reported Smoking Status: Vaper Past Alcohol Use History: None Reported Past Drug Use History: None Reported - Past Family History Mother History Unknown: Yes Family Medical History: No Reported History General Exam Limitations: no limitations General appearance: alert, in no apparent distress Head exam: Present: atraumatic Respiratory exam: Present: normal lung sounds bilaterally Cardiovascular Exam: Present: regular rate GI/Abdominal exam: Present: soft Speculum exam: Present: other (deferred) Extremities exam: Present: full ROM Neurological exam: Present: alert, altered, oriented X3 Psychiatric exam: Present: normal affect, normal mood Course Vital Signs 0911/06/22 11/06/22 13:10 13:13 15:05 Temperature 99.1 F 99.7 F H 99.1 F Pulse Rate 109 H 101 H 99 Respiratory 16 18 17 Rate Blood Pressure 128/79 136/88 109/70 O2 Sat by Pulse 99 99 96 Oximetry 11/06/22 16:20 Temperature 98.7 F Pulse Rate 87 Respiratory 16 Rate Blood Pressure 108/66 O2 Sat by Pulse 98 Oximetry - Reevaluation(s) Reevaluation #1: 11/06/22 19:53 Discussed labs and imaging results with the patient. Ultrasound is negative for intrauterine . There is trace fluid seen. No obvious signs of products of conception. Patient's hCG Quant decreased to 8700 today. I discussed following up in speaking with the SENIOR PRINCIPAL PROCESS ENGINEER tomorrow regarding the D&C scheduled for Friday. At this time he do not believe that there is any products to remove so they will need to reevaluate the ultrasound done today. I discussed signs to return to the emergency room with the patient including worsening bleeding, dizziness, chest fevers, chest pain, syncope or any other new concerning symptoms. She understands to agrees to this treatment and discha rge plan. She does not want anything else for pain at home. Medical Decision Making - Medical Decision Making Was pt. sent in by a medical professional or institution (DEANNA Enriquez, CAPTAIN CANNERY TENDER, urgent care, hospital, or group home...) When possible be specific @ -SENIOR PRINCIPAL PROCESS ENGINEER Dr. Faust Did you speak to anyone other than the patient for history (EMS, parent, family, police, friend...)? What history was obtained from this source @ -[No] Did you review nursing and triage notes (agree or disagree)? Why? @ -[I reviewed and agree with nursing and triage notes] Were old charts reviewed (outside hosp., previous admission, EMS record, old EKG, old radiological studies, urgent care reports/EKG's, group home records)? Report findings @ -Yes old charts were reviewed Differential Diagnosis (chest pain, altered mental status, abdominal pain women, abdominal pain men, vaginal bleeding, weakness, fever, dyspnea, syncope, headache, dizziness, GI bleed, back pain, seizure, CVA, palpatations, mental health, musculoskeletal)? @ -Ectopic, interviewed in , inevitable , threatened , complete , incomplete EKG interpreted by me (3pts min.). @ -[As above] X-rays interpreted by me (1pt min.). @ -[None done] CT interpreted by me (1pt min.). @ -[None done] U/S interpreted by me (1pt. min.). @ -No obvious intrauterine radiology report pending for confirmationo What testing was considered but not performed or refused? (CT, X-rays, U/S, labs)? Why? @ -no What meds were considered but not given or refused? Why? @ -[None] Did you discuss the management of the patient with other professionals (professionals i.e. , PA, CAPTAIN CANNERY TENDER, lab, RT, psych nurse, sexual assault social worker, pneumatic tube repairer, te acher, gunnery/ordnance officer, director of casework department)? Give summary @ -Discussed patient's symptoms were Admitted management with ED attending physician Dr. dunne. Was smoking cessation discussed for >3mins.? @ -[No] Was critical care preformed (if so, how long)? @ -[No] Were there social determinants of health that impacted care today? How? (Homelessness, low income, unemployed, alcoholism, drug addiction, transportation, low edu. Level, literacy, decrease access to med. care, skilled nursing, rehab)? @ -[No] Was there de-escalation of care discussed even if they declined (Discuss DNR or withdrawal of care, Hospice)? DNR status @ -[No] What co-morbidities impacted this encounter? (DM, HTN, Smoking, COPD, CAD, Cancer, CVA, ARF, Chemo, Hep., AIDS, mental health diagnosis, sleep apnea, morbid obesity)? @ -[None] Was patient admitted / discharged? Hospital course, mention meds given and rou te, prescriptions, significant lab abnormalities, going to OR and other pertinent info. @ -Stable to follow up as an outpatient. She is to follow up with SENIOR PRINCIPAL PROCESS ENGINEER Dr. Faust for follow-up evaluation and further management. I discussed signs to return to the emergency room including but not limited to any worsening bleeding, dizziness, near syncope fevers or new concerning symptoms. There is no indication for hospitalization is required at this time. Undiagnosed new problem with uncertain prognosis? @ -[No] Drug Therapy requiring intensive monitoring for toxicity (Heparin, Nitro, Insulin, Cardizem)? @ -[No] Were any procedures done? @ -[No] Diagnosis/symptom? @ -Incomplete , vaginal bleeding and Acute, or Chronic, or Acute on Chronic? @ -[default] Uncomplicated (without systemic symptoms) or Complicated (systemic symptoms)? @ -[default] Side effects of treatment? @ -[No] Exacerbation, Progression, or Severe Exacerbation? @ -[No] Poses a threat to life or bodily function? How? (Chest pain, [place], [place], pneumonia, PE, COPD, DKA, ARF, appy, cholecystitis, CVA, Diverticulitis, Homicidal, Suicidal, threat to staff... and all critical care pts) @ -[No] - Lab Data Result diagrams: 11/06/22 14:00 11/06/22 14:00 Lab Results 11/06/22 11/06/22 11/06/22 Range/Units 14:00 14:00 14:00 WBC 7.4 (3.8-10.6) k/uL RBC 4.25 (3.80-5.40) m/uL Hgb 13.3 (11.4-16.0) gm/dL Hct 39.2 (34.0-46.0) % MCV 92.4 (80.0-100.0) fL MCH 31.2 (25.0-35.0) pg MCHC 33.8 (31.0-37.0) g/dL RDW 12.8 (11.5-15.5) % Plt Count 205 (150-450) k/uL MPV 8.0 Neutrophils % 68 % Lymphocytes % 21 % Monocytes % 6 % Eosinophils % 3 % Basophils % 0 % Neutrophils # 5.1 (1.3-7.7) k/uL Lymphocytes # 1.6 (1.0-4.8) k/uL Monocytes # 0.4 (0-1.0) k/uL Eosinophils # 0.2 (0-0.7) k/uL Basophils # 0.0 (0-0.2) k/uL Sodium 138 (137-145) mmol/L Potassium 3.9 (3.5-5.1) mmol/L Chloride 110 H (98-107) mmol/L Carbon Dioxide 19 L (22-30) mmol/L Anion Gap 9 mmol/L BUN 8 (7-17) mg/dL Creatinine 0.43 L (0.52-1.04) mg/dL Est GFR (CKD-EPI)AfAm >90 (>60 ml/min/1.73 sqM) Est GFR (CKD-EPI)NonAf >90 (>60 ml/min/1.73 sqM) Glucose 103 H (74-99) mg/dL Calcium 8.8 (8.4-10.2) mg/dL Total Bilirubin 0.4 (0.2-1.3) mg/dL AST 25 (14-36) U/L ALT 21 (4-34) U/L Alkaline Phosphatase 49 (38-126) U/L Total Protein 7.4 (6.3-8.2) g/dL Albumin 4.4 (3.5-5.0) g/dL HCG, Quant 8707.7 mIU/mL Urine Color Urine Appearance (Clear) Urine pH (5.0-8.0) Ur Specific [place] (1.001-1.035) Urine Protein (Negative) Urine Glucose (UA) (Negative) Urine Ketones (Negative) Urine Blood (Negative) Urine Nitrite (Negative) Urine Bilirubin (Negative) Urine Urobilinogen (<2.0) mg/dL Ur Leukocyte Esterase (Negative) Urine RBC (0-5) /hpf Urine WBC (0-5) /hpf Ur Squamous Epith Cells (0-4) /hpf Urine Mucus (None) /hpf Blood Type A Positive Blood Type Recheck A Pos Bld Type Recheck Status No 11/06/22 Range/Units 14:00 WBC (3.8-10.6) k/uL RBC (3.80-5.40) m/uL Hgb (11.4-16.0) gm/dL Hct (34.0-46.0) % MCV (80.0-100.0) fL MCH (25.0-35.0) pg MCHC (31.0-37.0) g/dL RDW (11.5-15.5) % Plt Count (150-450) k/uL MPV Neutrophils % % Lymphocytes % % Monocytes % % Eosinophils % % Basophils % % Neutrophils # (1.3-7.7) k/uL Lymphocytes # (1.0-4.8) k/uL Monocytes # (0-1.0) k/uL Eosinophils # (0-0.7) k/uL Basophils # (0-0.2) k/uL Sodium (137-145) mmol/L Potassium (3.5-5.1) mmol/L Chloride (98-107) mmol/L Carbon Dioxide (22-30) mmol/L Anion Gap mmol/L BUN (7-17) mg/dL Creatinine (0.52-1.04) mg/dL Est GFR (CKD-EPI)AfAm (>60 ml/min/1.73 sqM) Est GFR (CKD-EPI)NonAf (>60 ml/min/1.73 sqM) Glucose (74-99) mg/dL Calcium (8.4-10.2) mg/dL Total Bilirubin (0.2-1.3) mg/dL AST (14-36) U/L ALT (4-34) U/L Alkaline Phosphatase (38-126) U/L Total Protein (6.3-8.2) g/dL Albumin (3.5-5.0) g/dL HCG, Quant mIU/mL Urine Color Yellow Urine Appearance Clear (Clear) Urine pH 7.0 (5.0-8.0) Ur Specific [place] 1.012 (1.001-1.035) Urine Protein Negative (Negative) Urine Glucose (UA) Negative (Negative) Urine Ketones Negative (Negative) Urine Blood Large H (Negative) Urine Nitrite Negative (Negative) Urine Bilirubin Negative (Negative) Urine Urobilinogen <2.0 (<2.0) mg/dL Ur Leukocyte Esterase Negative (Negative) Urine RBC >182 H (0-5) /hpf Urine WBC 4 (0-5) /hpf Ur Squamous Epith Cells 1 (0-4) /hpf Urine Mucus Rare H (None) /hpf Blood Type Blood Type Recheck Bld Type Recheck Status - Radiology Data Radiology results: report reviewed, image reviewed Disposition Clinical Impression: Incomplete , Vaginal bleeding in Disposition: HOME SELF-CARE Condition: Good Instructions (If sedation given, give patient instructions): Miscarriage (ED) Additional Instructions: Return for any worsening bleeding, dizziness, near passing out, fevers or new concerning symptoms Is patient prescribed a controlled substance at d/c from ED?: No Referrals: Kevin Elias MD [Primary Care Provider] - 1-2 days Teddy Faust MD [STAFF PHYSICIAN] - 1-2 days Time of Disposition: 19:46
== END 2022-11-06 20:12 | disposition home or self-care (01) ==
LOC: EC 12:43
DX: O03.4 Incomplete spontaneous abortion without complication (principal); O99.331 Smoking (tobacco) complicating pregnancy, first trimester; F17.290 Nicotine dependence, other tobacco product, uncomplicated; Z3A.01 Less than 8 weeks gestation of pregnancy
CPT/HCPCS: 36415; 76801; 80053; 81001; 84702; 85025; 86900; 86901; 96360; 96361; 99285

== ENCOUNTER 2023-08-10 12:40 | Emergency (ER) | payer OTHER ==
[2023-08-10 13:09] VITALS: TEMP 98.3
--- NOTE | 2023-08-10 13:45 | ED ---
General Adult HPI - General Chief complaint: OB/Uterine Contractions Stated complaint: cramps/poss Time Seen by Provider: 08/10/23 13:10 Source: patient, RN notes reviewed Mode of arrival: ambulatory Limitations: no limitations - History of Present Illness Initial comments: 23-year-old G5, P3 female presents to the emergency department for evaluation of lower abdominal cramping in . Patient states that her last menstrual period was 07-08-2023. She states that over the last 3 days she has had lower abdominal cramping on and off. Patient denies aggravating and alleviating factors. Denies vaginal bleeding. Denies fever, urinary symptoms. - Related Data Home Medications Medication Instructions Recorded Confirmed No Known Home Medications 11/07/22 Allergies Allergy/AdvReac Type Severity Reaction Status Date / Time No Known Allergies Allergy Verified 08/10/23 13:09 Review of Systems ROS Statement: Those systems with pertinent positive or pertinent negative responses have been documented in the HPI. ROS Other: All systems not noted in ROS Statement are negative. Past Medical History Past Medical History: No Reported History Additional Past Medical History / Comment(s): A+GBS neg. History of Any Multi-Drug Resistant Organisms: None Reported Past Surgical History: No Surgical Hx Reported Past Anesthesia/Blood Transfusion Reactions: No Reported Reaction Past Psychological History: No Psychological Hx Reported Smoking Status: Vaper Past Alcohol Use History: None Reported Past Drug Use History: None Reported - Past Family History Mother History Unknown: Yes Family Medical History: No Reported History General Exam Limitations: no limitations General appearance: alert, in no apparent distress Head exam: Present: atraumatic, normocephalic, normal inspection Eye exam: Present: normal appearance, PERRL, EOMI. Absent: scleral icterus, conjunctival injection, periorbital swelling ENT exam: Present: normal exam, mucous membranes moist Neck exam: Present: normal inspection. Absent: tenderness, meningismus, lymphadenopathy Respiratory exam: Present: normal lung sounds bilaterally. Absent: respiratory distress, wheezes, rales, rhonchi, stridor Cardiovascular Exam: Present: regular rate, normal rhythm, normal heart sounds. Absent: systolic murmur, diastolic murmur, rubs, gallop, clicks GI/Abdominal exam: Present: soft, normal bowel sounds. Absent: distended, tenderness, guarding, rebound, rigid Extremities exam: Present: normal inspection, full ROM, normal capillary refill. Absent: tenderness, pedal edema, joint swelling, calf tenderness Back exam: Present: normal inspection Neurological exam: Present: alert, oriented X3 Psychiatric exam: Present: normal affect, normal mood Skin exam: Present: warm, dry, intact, normal color. Absent: rash Course Vital Signs 08/10/23 08/10/23 13:07 15:25 Temperature 98.3 F Pulse Rate 67 60 Respiratory 18 14 Rate Blood Pressure 113/65 105/54 O2 Sat by Pulse 99 Oximetry Medical Decision Making - Medical Decision Making Was pt. sent in by a medical professional or institution (, PA, CUSTODIAN MANAGER, urgent care, hospital, or long-term...) When possible be specific @ -No Did you speak to anyone other than the patient for history (EMS, parent, family, police, friend...)? What history was obtained from this source @ -No Did you review nursing and triage notes (agree or disagree)? Why? @ -I reviewed and agree with nursing and triage notes Were old charts reviewed (outside hosp., previous admission, EMS record, old EKG, old radiological studies, urgent care reports/EKG's, long-term records)? Report findings @ -No old charts were reviewed Differential Diagnosis (chest pain, altered mental status, abdominal pain women, abdominal pain men, vaginal bleeding, weakness, fever, dyspnea, syncope, headache, dizziness, GI bleed, back pain, seizure, CVA, palpatations, mental health, musculoskeletal)? @ -Differential Vaginal Bleeding: Spontaneous , threatened , molar , ectopic , bloody show, incompetent cervix, abruptioplacenta, placenta previa, uterine rupture, dysfunctional uterine bleeding, hemorrhage, uterine fibroids, this is not meant to be an all-inclusive list. EKG interpreted by me (3pts min.). @ -None X-rays interpreted by me (1pt min.). @ -None done CT interpreted by me (1pt min.). @ -None done U/S interpreted by me (1pt. min.). @ - ultrasound d considered, unlikely to see anything due to early What testing was considered but not performed or refused? (CT, X-rays, U/S, labs)? Why? @ -None What meds were considered but not given or refused? Why? @ -None Did you discuss the management of the patient with other professionals (professionals i.e. Dr., PA, CUSTODIAN MANAGER, lab, RT, psych nurse, social insurance specialist, steel estimator, teacher, commanding officer garage, mental health case manager)? Give summary @ -No Was smoking cessation discussed for >3mins.? @ -No Was critical care preformed (if so, how long)? @ -No Were there social determinants of health that impacted care today? How? (Homelessness, low income, unemployed, alcoholism, drug addiction, transportati on, low edu. Level, literacy, decrease access to med. care, long term, rehab)? @ -No Was there de-escalation of care discussed even if they declined (Discuss DNR or withdrawal of care, Hospice)? DNR status @ -No What co-morbidities impacted this encounter? (DM, HTN, Smoking, COPD, CAD, Cancer, CVA, ARF, Chemo, Hep., AIDS, mental health diagnosis, sleep apnea, morbid obesity)? @ -None Was patient admitted / discharged? Hospital course, mention meds given and route, prescriptions, significant lab abnormalities, going to OR and other pertinent info. @ -Discharged. Patient presented to the emergency department for lower abdominal cramping in . She states the cramping is intermittent. D enies any significant pain. Laboratory studies obtained. Patient is mildly anemic.Beta-hCG was obtained which was 658.7. Advised patient to follow-up in 48 hours for repeat hCG. UA shows no evidence of infectious process. Patient to follow-up with her FREIGHT ADJUSTER as scheduled next month. Patient understanding and agreeable plan. Patient stable for discharge discussed with Dr. Wong. Undiagnosed new problem with uncertain prognosis? @ -No Drug Therapy requiring intensive monitoring for toxicity (Heparin, Nitro, Insulin, Cardizem)? @ -No Were any procedures done? @ -No Diagnosis/symptom? @ -Early Acute, or Chronic, or Acute on Chronic? @ -acute Uncomplicated (without systemic symptoms) or Complicated (systemic symptoms)? @ -uncomplicated Side effects of treatment? @ -No Exacerbation, Progression, or Severe Exacerbation? @ -No Poses a threat to life or bodily function? How? (Chest pain, [place], [place], pneumonia, PE, COPD, DKA, ARF, appy, cholecystitis, CVA, Diverticulitis, Homicidal, Suicidal, threat to staff... and all critical care pts) @ -No - Lab Data Result diagrams: 08/10/23 13:39 08/10/23 13:39 Lab Results 08/10/23 08/10/23 08/10/23 Range/Units 13:39 13:39 13:39 WBC 5.9 (3.8-10.6) k/uL RBC 3.82 (3.80-5.40) m/uL Hgb 10.6 L (11.4-16.0) gm/dL Hct 32.9 L (34.0-46.0) % MCV 86.2 (80.0-100.0) fL MCH 27.8 (25.0-35.0) pg MCHC 32.2 (31.0-37.0) g/dL RDW 14.2 (11.5-15.5) % Plt Count 172 (150-450) k/uL MPV 9.2 Neutrophils % 61 % Lymphocytes % 29 % Monocytes % 6 % Eosinophils % 1 % Basophils % 0 % Neutrophils # 3.7 (1.3-7.7) k/uL Lymphocytes # 1.7 (1.0-4.8) k/uL Monocytes # 0.3 (0-1.0) k/uL Eosinophils # 0.1 (0-0.7) k/uL Basophils # 0.0 (0-0.2) k/uL Sodium 137 (137-145) mmol/L Potassium 4.0 (3.5-5.1) mmol/L Chloride 110 H (98-107) mmol/L Carbon Dioxide 21 L (22-30) mmol/L Anion Gap 6 mmol/L BUN 17 (7-17) mg/dL Creatinine 0.46 L (0.52-1.04) mg/dL Est GFR (CKD-EPI)AfAm >90 (>60 ml/min/1.73 sqM) Est GFR (CKD-EPI)NonAf >90 (>60 ml/min/1.73 sqM) Glucose 85 (74-99) mg/dL Calcium 8.8 (8.4-10.2) mg/dL Total Bilirubin 0.4 (0.2-1.3) mg/dL AST 20 (14-36) U/L ALT 17 (4-34) U/L Alkaline Phosphatase 35 L (38-126) U/L Total Protein 6.5 (6.3-8.2) g/dL Albumin 4.0 (3.5-5.0) g/dL HCG, Quant 658.7 mIU/mL Urine Color Colorless Urine Appearance Clear (Clear) Urine pH 6.5 (5.0-8.0) Ur Specific [place] 1.023 (1.001-1.035) Urine Protein Negative (Negative) Urine Glucose (UA) Negative (Negative) Urine Ketones Negative (Negative) Urine Blood Negative (Negative) Urine Nitrite Negative (Negative) Urine Bilirubin Negative (Negative) Urine Urobilinogen <2.0 (<2.0) mg/dL Ur Leukocyte Esterase Trace H (Negative) Urine RBC 1 (0-5) /hpf Urine WBC 2 (0-5) /hpf Ur Squamous Epith Cells 5 H (0-4) /hpf Urine Mucus Rare H (None) /hpf Blood Type Blood Type Recheck Bld Type Recheck Status 08/10/23 Range/Units 13:39 WBC (3.8-10.6) k/uL RBC (3.80-5.40) m/uL Hgb (11.4-16.0) gm/dL Hct (34.0-46.0) % MCV (80.0-100.0) fL MCH (25.0-35.0) pg MCHC (31.0-37.0) g/dL RDW (11.5-15.5) % Plt Count (150-450) k/uL MPV Neutrophils % % Lymphocytes % % Monocytes % % Eosinophils % % Basophils % % Neutrophils # (1.3-7.7) k/uL Lymphocytes # (1.0-4.8) k/uL Monocytes # (0-1.0) k/uL Eosinophils # (0-0.7) k/uL Basophils # (0-0.2) k/uL Sodium (137-145) mmol/L Potassium (3.5-5.1) mmol/L Chloride (98-107) mmol/L Carbon Dioxide (22-30) mmol/L Anion Gap mmol/L BUN (7-17) mg/dL Creatinine (0.52-1.04) mg/dL Est GFR (CKD-EPI)AfAm (>60 ml/min/1.73 sqM) Est GFR (CKD-EPI)NonAf (>60 ml/min/1.73 sqM) Glucose (74-99) mg/dL Calcium (8.4-10.2) mg/dL Total Bilirubin (0.2-1.3) mg/dL AST (14-36) U/L ALT (4-34) U/L Alkaline Phosphatase (38-126) U/L Total Protein (6.3-8.2) g/dL Albumin (3.5-5.0) g/dL HCG, Quant mIU/mL Urine Color Urine Appearance (Clear) Urine pH (5.0-8.0) Ur Specific [place] (1.001-1.035) Urine Protein (Negative) Urine Glucose (UA) (Negative) Urine Ketones (Negative) Urine Blood (Negative) Urine Nitrite (Negative) Urine Bilirubin (Negative) Urine Urobilinogen (<2.0) mg/dL Ur Leukocyte Esterase (Negative) Urine RBC (0-5) /hpf Urine WBC (0-5) /hpf Ur Squamous Epith Cells (0-4) /hpf Urine Mucus (None) /hpf Blood Type A Positive Blood Type Recheck A Pos Bld Type Recheck Status [facility] ONLY Disposition Clinical Impression: Abdominal cramping affecting Disposition: HOME SELF-CARE Condition: Stable Instructions (If sedation given, give patient instructions): Abdominal Pain in (ED) Additional Instructions: Please follow up with your FREIGHT ADJUSTER as scheduled. Return to the emergency department for new or worsening symptoms. Is patient prescribed a controlled substance at d/c from ED?: No Referrals: Kevin Elias MD [Primary Care Provider] - 1-2 days
[2023-08-10 14:02] LABS: Appearance,Urine Clear (Clear); Bilirubin,Urine Negative (Negative); Blood,Urine Negative (Negative); Color,Urine Colorless; Glucose,Urine (UA) Negative (Negative); Ketones,Urine Negative (Negative); Leukocyte Esterase,Urine Trace (Negative); Mucus,Urine Rare /hpf; Nitrite,Urine Negative (Negative); PH, Urine 6.5 (5.0-8.0); Protein,Urine Negative (Negative); RBC,Urine 1 /hpf (0-5); Specific Gravity,Urine 1.023 (1.001-1.035); Squamous Epithelial Cell,Urine 5 /hpf (0-4); Urobilinogen,Urine <2.0 mg/dL (<2.0); WBC,Urine 2 /hpf (0-5)
[2023-08-10 14:06] LABS: Basophils % (A) 0 %; Eosinophils # (A) 0.1 k/uL (0-0.7); Eosinophils % (A) 1 %; HCT 32.9 % (34.0-46.0); HGB 10.6 gm/dL (11.4-16.0); Lymphocytes # (A) 1.7 k/uL (1.0-4.8); Lymphocytes % (A) 29 %; MCH 27.8 pg (25.0-35.0); MCHC 32.2 g/dL (31.0-37.0); MCV 86.2 fL (80.0-100.0); Mean Platelet Volume 9.2; Monocytes # (A) 0.3 k/uL (0-1.0); Monocytes % (A) 6 %; Neutrophils # (A) 3.7 k/uL (1.3-7.7); Neutrophils % (A) 61 %; Platelet Count 172 k/uL (150-450); RBC 3.82 m/uL (3.80-5.40); RDW 14.2 % (11.5-15.5); WBC 5.9 k/uL (3.8-10.6)
[2023-08-10 14:14] LABS: ALT 17 U/L (4-34); AST 20 U/L (14-36); African American GFR (CKD) >90 (>60 ml/min/1.73 sqM); Alkaline Phosphatase 35 U/L (38-126); Anion Gap 6 mmol/L; Blood Urea Nitrogen 17 mg/dL (7-17); Calcium 8.8 mg/dL (8.4-10.2); Carbon Dioxide 21 mmol/L (22-30); Chloride 110 mmol/L (98-107); Glucose 85 mg/dL (74-99); Non-African American GFR(CKD) >90 (>60 ml/min/1.73 sqM); Sodium 137 mmol/L (137-145); Total Bilirubin 0.4 mg/dL (0.2-1.3); Total Protein 6.5 g/dL (6.3-8.2)
[2023-08-10 14:27] LABS: HCG,Quantitative Serum 658.7 mIU/mL
[2023-08-10 15:26] VITALS: BP 105/54; PULSE 60; RESP 14
== END 2023-08-10 15:30 | disposition home or self-care (01) ==
LOC: EC 12:40
DX: O26.899 Other specified pregnancy related conditions, unspecified trimester (principal); R10.30 Lower abdominal pain, unspecified; O99.330 Smoking (tobacco) complicating pregnancy, unspecified trimester; F17.290 Nicotine dependence, other tobacco product, uncomplicated; Z3A.00 Weeks of gestation of pregnancy not specified
CPT/HCPCS: 36415; 80053; 81001; 84702; 85025; 86900; 86901; 99283

== ENCOUNTER → 2023-08-12 | Outpatient (CLI) | payer OTHER | END | disposition home or self-care (01) | LOC: LABWHC1 11:07 | PROVIDERS: ATTEND Physician Assistant | DX: O20.0 Threatened abortion (principal); Z3A.00 Weeks of gestation of pregnancy not specified | CPT/HCPCS: 36415; 84702 ==

== ENCOUNTER 2023-08-16 15:24 | Emergency (ER) | payer OTHER ==
--- NOTE | 2023-08-16 16:03 | ED ---
Abdominal Pain HPI - General Chief Complaint: Abdominal Pain Stated Complaint: 6wks Preg/Cramping Time Seen by Provider: 08/16/23 16:00 Source: patient, RN notes reviewed Mode of arrival: ambulatory Limitations: no limitations - History of Present Illness Initial Comments: 23-year-old G5, P3 female at approximately 6 weeks gestation presenting with left lower quadrant pain. States she was experiencing some lower left pelvic discomfort yesterday, however has not had the pain today and is not currently experiencing any symptoms. Denies vaginal bleeding or spotting. Denies urinary symptoms. She reports she has an ultrasound scheduled in 10 days from now. - Related Data Home Medications Medication Instructions Recorded Confirmed No Known Home Medications 11/07/22 Allergies Allergy/AdvReac Type Severity Reaction Status Date / Time No Known Allergies Allergy Verified 08/16/23 15:45 Review of Systems ROS Statement: Those systems with pertinent positive or pertinent negative responses have been documented in the HPI. ROS Other: All systems not noted in ROS Statement are negative. Past Medical History Past Medical History: No Reported History Additional Past Medical History / Comment(s): A+GBS neg. History of Any Multi-Drug Resistant Organisms: None Reported Past Surgical History: No Surgical Hx Reported Past Anesthesia/Blood Transfusion Reactions: No Reported Reaction Past Psychological History: No Psychological Hx Reported Smoking Status: Vaper Past Alcohol Use History: None Reported Past Drug Use History: None Reported - Past Family History Mother History Unknown: Yes Family Medical History: No Reported History General Exam - General Exam Comments Initial Comments: Visual Physical Exam Vital signs reviewed General: Well-appearing, nontoxic, no acute distress. Head: Normocephalic, atraumatic Eyes: PERRLA, EOMI ENT: Airway patent Chest: Nonlabored breathing Skin: No visual rash, normal skin tone Neuro: Alert and oriented 3 Musculoskeletal: No gross abnormalities Limitations: no limitations General appearance: alert, in no apparent distress Head exam: Present: atraumatic, normocephalic, normal inspection Eye exam: Present: normal appearance, PERRL, EOMI. Absent: scleral icterus, con junctival injection, periorbital swelling ENT exam: Present: normal exam, mucous membranes moist Neck exam: Present: normal inspection. Absent: tenderness, meningismus, lymphadenopathy Respiratory exam: Present: normal lung sounds bilaterally. Absent: respiratory distress, wheezes, rales, rhonchi, stridor Cardiovascular Exam: Present: regular rate, normal rhythm, normal heart sounds. Absent: systolic murmur, diastolic murmur, rubs, gallop, clicks GI/Abdominal exam: Present: soft, normal bowel sounds. Absent: distended, tenderness, guarding, rebound, rigid Extremities exam: Present: normal inspection, full ROM, normal capillary refill. Absent: tenderness, pedal edema, joint swelling, calf tenderness Back exam: Present: normal inspection. Absent: CVA tenderness (R), CVA tenderness (L) Neurological exam: Present: alert, oriented X3, CN II-XII intact Psychiatric exam: Present: normal affect, normal mood Skin exam: Present: warm, dry, intact, normal color. Absent: rash Course Vital Signs 08/16/23 08/16/23 15:43 20:00 Temperature 97.9 F 98.1 F Pulse Rate 75 64 Respiratory 20 19 Rate Blood Pressure 111/68 102/64 O2 Sat by Pulse 97 97 Oximetry Medical Decision Making - Medical Decision Making I completed the quick note portion of this chart signed Queenie Felix PA-C Was pt. sent in by a medical professional or institution (DEANNA Enriquez, [employer], urgent care, hospital, or long-term...) When possible be specific @ -No Did you speak to anyone other than the patient for history (EMS, parent, family, police, friend...)? What history was obtained from this source @ -No Did you review nursing and triage notes (agree or disagree)? Why? @ -I reviewed and agree with nursing and triage notes Were old charts reviewed (outside hosp., previous admission, EMS record, old EKG, old radiological studies, urgent care reports/EKG's, long-term records)? Report findings @ -Beta-hCG levels compared to 4 days ago and appears to be rising appropriately Differential Diagnosis (chest pain, altered mental status, abdominal pain women, abdominal pain men, vaginal bleeding, weakness, fever, dyspnea, syncope, headache, dizziness, GI bleed, back pain, seizure, CVA, palpatations, mental health, musculoskeletal)? @ -Differential Abdominal Pain Women: Appendicitis, Cholecystitis, diverticulosis, ischemic bowel, pancreatitis, hepatitis, UTI, gastroenteritis, AAA, incarcerated hernia, bowel obstruction, constipation, inflammatory bowel, hepatitis, peptic ulcer disease, splenic infarction, perforated viscus, vulvitis, ovarian torsion, PID, kidney stone, placenta abruption, this is not meant to be an all-inclusive list EKG interpreted by me (3pts min.). @ -None X-rays interpreted by me (1pt min.). @ -None done CT interpreted by me (1pt min.). @ -None done U/S interpreted by me (1pt. min.). @ -Ultrasound reveals small anechoic intrauterine cystic structure without evidence for pole at this time, thought to represent early gestational sac, however ectopic and abnormal uterine cannot be ruled out at this time. What testing was considered but not performed or refused? (CT, X-rays, U/S, la bs)? Why? @ -None What meds were considered but not given or refused? Why? @ -None Did you discuss the management of the patient with other professionals (professionals i.e. , PA, [employer], lab, RT, psych nurse, drug abuse social worker, director of primary, teacher, chief communications officer, complex case manager)? Give summary @ -No Was smoking cessation discussed for >3mins.? @ -No Was critical care preformed (if so, how long)? @ -No Were there social determinants of health that impacted care today? How? (Homelessness, low income, unemployed, alcoholism, drug addiction, transportation, low edu. Level, literacy, decrease access to med. care, prison, rehab)? @ -No Was there de-escalation of care discussed even if they declined (Discuss DNR or withdrawal of care, Hospice)? DNR status @ -No What co-morbidities impacted this encounter? (DM, HTN, Smoking, COPD, CAD, Cancer, CVA, ARF, Chemo, Hep., AIDS, mental health diagnosis, sleep apnea, morbid obesity)? @ -None Was patient admitted / discharged? Hospital course, mention meds given and route, prescriptions, significant lab abnormalities, going to OR and other pertinent info. @ -Patient was discharged. Patient was seen and evaluated for left sided pelvic pain that occurred yesterday. She is currently 6 weeks . Patient is currently asymptomatic. Denies any vaginal spotting or bleeding. Vitals are stable and physical examination is unremarkable. Lab work including CBC and CMP is largely unremarkable. Beta hCG level is 7969. urine is negative for blood or bacteria. Ultrasound revealed small anechoic intrauterine cystic structure without evidence for pole at this time, thought to represent early gestational sac, however ectopic and abnormal uterine cannot be ruled out at this time. Beta hCG level compared to 4 days ago and appears to be increasing appropriately. Discussed with patient there are no signs of emergent etiology that caused episode of pelvic pain yesterday. Advised to follow-up for repeat ultrasound and serial beta hCG levels. Strict return/alarm symptoms discussed with patient in detail and she shows understanding and agrees with plan. Case discussed with my attending Dr. Juarez. Patient was discharged in stable condition. Undiagnosed new problem with uncertain prognosis? @ -No Drug Therapy requiring intensive monitoring for toxicity (Heparin, Nitro, Insulin, Cardizem)? @ -No Were any procedures done? @ -No Diagnosis/symptom? @ -Pelvic pain in Acute, or Chronic, or Acute on Chronic? @ -Acute Uncomplicated (without systemic symptoms) or Complicated (systemic symptoms)? @ -Uncomplicated Side effects of treatment? @ -No Exacerbation, Progression, or Severe Exacerbation? @ -No Poses a threat to life or bodily function? How? (Chest pain, [place], [place], pneumonia, PE, COPD, DKA, ARF, appy, cholecystitis, CVA, Diverticulitis, Homicidal, Suicidal, threat to staff... and all critical care pts) @ -Low likelihood - Lab Data Result diagrams: 08/16/23 16:15 08/16/23 16:15 Lab Results 08/16/23 08/16/23 08/16/23 Range/Units 16:15 16:15 16:15 WBC 9.8 (3.8-10.6) k/uL RBC 3.71 L (3.80-5.40) m/uL Hgb 10.8 L (11.4-16.0) gm/dL Hct 32.6 L (34.0-46.0) % MCV 87.8 (80.0-100.0) fL MCH 29.2 (25.0-35.0) pg MCHC 33.3 (31.0-37.0) g/dL RDW 14.5 (11.5-15.5) % Plt Count 215 (150-450) k/uL MPV 8.6 Neutrophils % 72 % Lymphocytes % 21 % Monocytes % 4 % Eosinophils % 1 % Basophils % 1 % Neutrophils # 7.1 (1.3-7.7) k/uL Lymphocytes # 2.0 (1.0-4.8) k/uL Monocytes # 0.4 (0-1.0) k/uL Eosinophils # 0.1 (0-0.7) k/uL Basophils # 0.1 (0-0.2) k/uL Sodium 138 (137-145) mmol/L Potassium 4.0 (3.5-5.1) mmol/L Chloride 110 H (98-107) mmol/L Carbon Dioxide 18 L (22-30) mmol/L Anion Gap 10 mmol/L BUN 20 H (7-17) mg/dL Creatinine 0.60 (0.52-1.04) mg/dL Est GFR (CKD-EPI)AfAm >90 (>60 ml/min/1.73 sqM) Est GFR (CKD-EPI)NonAf >90 (>60 ml/min/1.73 sqM) Glucose 106 H (74-99) mg/dL Calcium 8.7 (8.4-10.2) mg/dL Total Bilirubin 0.3 (0.2-1.3) mg/dL AST 22 (14-36) U/L ALT 21 (4-34) U/L Alkaline Phosphatase 38 (38-126) U/L Total Protein 6.6 (6.3-8.2) g/dL Albumin 4.2 (3.5-5.0) g/dL Amylase 68 (30-110) U/L Lipase 190 (23-300) U/L HCG, Quant 7969.3 mIU/mL Urine Color Light Yellow Urine Appearance Clear (Clear) Urine pH 6.0 (5.0-8.0) Ur Specific [place] 1.030 (1.001-1.035) Urine Protein Negative (Negative) Urine Glucose (UA) Negative (Negative) Urine Ketones Negative (Negative) Urine Blood Negative (Negative) Urine Nitrite Negative (Negative) Urine Bilirubin Negative (Negative) Urine Urobilinogen <2.0 (<2.0) mg/dL Ur Leukocyte Esterase Negative (Negative) Disposition Clinical Impression: Pelvic pain during Disposition: HOME SELF-CARE Condition: Stable Instructions (If sedation given, give patient instructions): Abdominal Pain in (ED) Additional Instructions: Please follow-up for repeat beta hCG levels and ultrasound as discussed. Please return to the Emergency Department if symptoms worsen or any other concerns. Is patient prescribed a controlled substance at d/c from ED?: No Referrals: Kevin Elias MD [Primary Care Provider] - 1-2 days Time of Disposition: 19:49
[2023-08-16 16:29] LABS: Appearance,Urine Clear (Clear); Bilirubin,Urine Negative (Negative); Blood,Urine Negative (Negative); Color,Urine Light Yellow; Glucose,Urine (UA) Negative (Negative); Ketones,Urine Negative (Negative); Leukocyte Esterase,Urine Negative (Negative); Nitrite,Urine Negative (Negative); Protein,Urine Negative (Negative); Urobilinogen,Urine <2.0 mg/dL (<2.0)
[2023-08-16 16:30] LABS: Basophils # (A) 0.1 k/uL (0-0.2); Basophils % (A) 1 %; Eosinophils # (A) 0.1 k/uL (0-0.7); Eosinophils % (A) 1 %; HCT 32.6 % (34.0-46.0); HGB 10.8 gm/dL (11.4-16.0); Lymphocytes % (A) 21 %; MCH 29.2 pg (25.0-35.0); MCHC 33.3 g/dL (31.0-37.0); MCV 87.8 fL (80.0-100.0); Mean Platelet Volume 8.6; Monocytes # (A) 0.4 k/uL (0-1.0); Monocytes % (A) 4 %; Neutrophils # (A) 7.1 k/uL (1.3-7.7); Neutrophils % (A) 72 %; Platelet Count 215 k/uL (150-450); RBC 3.71 m/uL (3.80-5.40); RDW 14.5 % (11.5-15.5); WBC 9.8 k/uL (3.8-10.6)
[2023-08-16 16:39] LABS: ALT 21 U/L (4-34); AST 22 U/L (14-36); African American GFR (CKD) >90 (>60 ml/min/1.73 sqM); Albumin 4.2 g/dL (3.5-5.0); Alkaline Phosphatase 38 U/L (38-126); Amylase 68 U/L (30-110); Anion Gap 10 mmol/L; Blood Urea Nitrogen 20 mg/dL (7-17); Calcium 8.7 mg/dL (8.4-10.2); Carbon Dioxide 18 mmol/L (22-30); Chloride 110 mmol/L (98-107); Glucose 106 mg/dL (74-99); Lipase 190 U/L (23-300); Non-African American GFR(CKD) >90 (>60 ml/min/1.73 sqM); Sodium 138 mmol/L (137-145); Total Bilirubin 0.3 mg/dL (0.2-1.3); Total Protein 6.6 g/dL (6.3-8.2)
[2023-08-16 16:56] LABS: HCG,Quantitative Serum 7969.3 mIU/mL
--- NOTE | 2023-08-16 17:20 | US ---
EXAMINATION TYPE: Transabdominal DATE OF EXAM: 08/16/2023 4:57 PM COMPARISON: NONE for this CLINICAL INDICATION: Female, 23 years old with history of Pelvic pain in ; Dull left-sided p elvic pain x 1 day. Hx 1 miscarriage. . EXAM PERFORMED: Transvaginal (TV) and Transabdominal (TA) EXAM MEASUREMENTS: GESTATIONAL AGE / DATING Physician Established: Not yet established. Dates by LMP: (5 weeks/ 4 days) EDC: 04/13/2024 Dates by First Scan: This is first scan. Dates by Current Scan for: (5 weeks/3 days) EDC: 04/14/2024 Dates are according to gestational sac measurements. MATERNAL ANATOMY Uterus: 9.1 x 6.0 x 4.5 cm. Right Ovary: 3.6 x 1.5 x 1.3 cm. Left Ovary: 4.3 x 2.6 x 2.1 cm. Area of mixed echogenicity and peripheral vascularity seen within: 2.3 x 1.7 x 1.9 cm. Area appears to have a solid-appearance, ?Question etiology. Post CDS / Adnexa: Free fluid seen within the CDS and the right adnexa. Presence of free fluid: Yes, in CDS and right adnexa. Presence of corpus luteal cyst: Possible-Area of mixed echogenicity and peripheral vascularity seen within the left ovary: 2.3 x 1.7 x 1.9 cm. Area appears to have a solid-appearance. Presence of subchorionic bleed: Hypoechoic area seen to the right of the gestational sac: 0.7 x 1.0 x 0.6 cm. GESTATION / SURVEY CRL: Not seen at this time. MSD: 0.85 cm. (5 weeks/3 days) Yolk Sac (normal less than 6mm): Possible yolk sac measures 1 mm. Heart Rate: No pole seen. IUP: Gestational sac seen at this time with possible yolk sac. Date of LMP: 07/08/2023 Beta HcG (if available): 7,969.3 mIU/mL IMPRESSION: 1. Small anechoic intrauterine cystic structure without evidence for pole at this time. This i s thought to represent an early gestational sac with a positive beta hCG of mIU/mL, however ectopic p regnancy and abnormal intrauterine cannot be ruled out based on this exam alone. Follow-up with pelvic ultrasound in 7-10 days and serial beta-hCG studies are recommended to en sure further de velopment of the fetus. 2. Tiny subchorionic hemorrhage.
[2023-08-16 20:16] VITALS: BP 102/64; PULSE 64; RESP 19; TEMP 98.1
== END 2023-08-16 20:14 | disposition home or self-care (01) ==
LOC: EC 15:24
DX: O26.891 Other specified pregnancy related conditions, first trimester (principal); R10.2 Pelvic and perineal pain; O99.331 Smoking (tobacco) complicating pregnancy, first trimester; F17.290 Nicotine dependence, other tobacco product, uncomplicated; Z3A.01 Less than 8 weeks gestation of pregnancy
CPT/HCPCS: 36415; 76801; 76817; 80053; 81003; 82150; 83690; 84702; 85025; 99284

== ENCOUNTER 2023-09-01 15:04 | Emergency (ER) | payer OTHER ==
[2023-09-01 15:26] VITALS: RESP 18
--- NOTE | 2023-09-01 16:03 | ED ---
Abdominal Pain HPI - General Chief Complaint: Abdominal Pain Stated Complaint: 8 weeks, Bleeding Time Seen by Provider: 09/01/23 15:24 Source: patient, RN notes reviewed Mode of arrival: ambulatory Limitations: no limitations - History of Present Illness Initial Comments: 23-year-old G5, P3 female at approximately 8 weeks gestation presenting with abdominal cramping. States this morning she had some mild cramping in the pelvic area and she noticed some light pink vaginal spotting this morning in her underwear. States there is no red or pink on the toilet paper when she wipes. Denies dysuria, hematuria, fever, chills. She has had multiple ultrasounds so far this which have been normal for gestational age. States she has not had a bowel movement in 2 days. She is unsure if the cramping is caused by constipation. - Related Data Home Medications Medication Instructions Recorded Confirmed No Known Home Medications 11/07/22 Allergies Allergy/AdvReac Type Severity Reaction Status Date / Time No Known Allergies Allergy Verified 09/01/23 15:26 Review of Systems ROS Statement: Those systems with pertinent positive or pertinent negative responses have been documented in the HPI. ROS Other: All systems not noted in ROS Statement are negative. Past Medical History Past Medical History: No Reported History Additional Past Medical History / Comment(s): A+GBS neg. History of Any Multi-Drug Resistant Organisms: None Reported Past Surgical History: No Surgical Hx Reported Past Anesthesia/Blood Transfusion Reactions: No Reported Reaction Past Psychological History: No Psychological Hx Reported Smoking Status: Vaper Past Alcohol Use History: None Reported Past Drug Use History: None Reported - Past Family History Mother History Unknown: Yes Family Medical History: No Reported History General Exam Limitations: no limitations General appearance: alert, in no apparent distress Head exam: Present: atraumatic, normocephalic, normal inspection Eye exam: Present: normal appearance, PERRL, EOMI. Absent: scleral icterus, conjunctival injection, periorbital swelling ENT exam: Present: normal exam, mucous membranes moist Respiratory exam: Present: normal lung sounds bilaterally. Absent: respiratory distress, wheezes, rales, rhonchi, stridor Cardiovascular Exam: Present: regular rate, normal rhythm, normal heart sounds. Absent: systolic murmur, diastolic murmur, rubs, gallop, clicks GI/Abdominal exam: Present: soft, normal bowel sounds. Absent: distended, tenderness, guarding, rebound, rigid Neurological exam: Present: alert, oriented X3 Psychiatric exam: Present: normal affect, normal mood Skin exam: Present: warm, dry, intact, normal color. Absent: rash Course Vital Signs 09/01/23 15:24 Temperature 98.5 F Pulse Rate 70 Respiratory 18 Rate Blood Pressure 114/65 O2 Sat by Pulse 99 Oximetry Medical Decision Making - Medical Decision Making Was pt. sent in by a medical professional or institution (, PA, PORTFOLIO SPECIALIST, urgent care, hospital, or intermediate...) When possible be specific @ -No Did you speak to anyone other than the patient for history (EMS, parent, family, police, friend...)? What history was obtained from this source @ -No Did you review nursing and triage notes (agree or disagree)? Why? @ -I reviewed and agree with nursing and triage notes Were old charts reviewed (outside hosp., previous admission, EMS record, old EKG, old radiological studies, urgent care reports/EKG's, intermediate records)? Report findings @ -No old charts were reviewed Differential Diagnosis (chest pain, altered mental status, abdominal pain women, abdominal pain men, vaginal bleeding, weakness, fever, dyspnea, syncope, headache, dizziness, GI bleed, back pain, seizure, CVA, palpatations, mental health, musculoskeletal)? @ -Differential Vaginal Bleeding: Spontaneous , threatened , molar , ectopic , bloody show, incompetent cervix, abruptioplacenta, placenta previa, uterine rupture, dysfunctional uterine bleeding, hemorrhage, uterine fibroids, this is not meant to be an all-inclusive list. EKG interpreted by me (3pts min.). @ -None X-rays interpreted by me (1pt min.). @ -None done CT interpreted by me (1pt min.). @ -None done U/S interpreted by me (1pt. min.). @ -Ultrasound revealed single viable intrauterine estimated 7 weeks 6 days. There is a 1.8 x 1.2 x 0.6 subchorionic bleed that is increased from previous study What testing was considered but not performed or refused? (CT, X-rays, U/S, labs)? Why? @ -None What meds were considered but not given or refused? Why? @ -None Did you discuss the management of the patient with other professionals (professionals i.e. , PA, PORTFOLIO SPECIALIST, lab, RT, psych nurse, social work associate, certified energy manager, teacher, division officer weapons department, embedded case manager)? Give summary @ -No Was smoking cessation discussed for >3mins.? @ -No Was critical care preformed (if so, how long)? @ -No Were there social determinants of health that impacted care today? How? (Homelessness, low income, unemployed, alcoholism, drug addiction, transportation, low edu. Level, literacy, decrease access to med. care, intermediate, rehab)? @ -No Was there de-escalation of care discussed even if they declined (Discuss DNR or withdrawal of care, Hospice)? DNR status @ -No What co-morbidities impacted this encounter? (DM, HTN, Smoking, COPD, CAD, Cancer, CVA, ARF, Chemo, Hep., AIDS, mental health diagnosis, sleep apnea, morbid obesity)? @ -None Was patient admitted / discharged? Hospital course, mention meds given and route, prescriptions, significant lab abnormalities, going to OR and other pertinent info. @ -Patient was discharged. Patient was seen and evaluated for abdominal cramping and vaginal spotting at 8 weeks gestation. vital signs and physical examination are unremarkable. Lab work including CBC, CMP, lactic acid are unremarkable. Beta hCG is greater than 225,000. Urine is unremarkable. Culture sent. Ultrasound revealed single viable intrauterine estimated 7 weeks 6 days. There is a 1.8 x 1.2 x 1.6 subchorionic bleed that is increased from previous study. Discussed with patient diagnosis of subchorionic bleed and threatened miscarriage. Advised follow-up beta-hCG in 48 hours to trend. Strict return/alarm symptoms discussed with patient in detail and she shows understanding and agrees to the plan. Case discussed with my attending Dr. Mistry. Patient discharged in stable condition. Undiagnosed new problem with uncertain prognosis? @ -No Drug Therapy requiring intensive monitoring for toxicity (Heparin, Nitro, Insulin, Cardizem)? @ -No Were any procedures done? @ -No Diagnosis/symptom? @ -Threatened , subchorionic bleed Acute, or Chronic, or Acute on Chronic? @ -Acute Uncomplicated (without systemic symptoms) or Complicated (systemic symptoms)? @ -Uncomplicated Side effects of treatment? @ -No Exacerbation, Progression, or Severe Exacerbation? @ -No Poses a threat to life or bodily function? How? (Chest pain, [place], [place], pneumonia, PE, COPD, DKA, ARF, appy, cholecystitis, CVA, Diverticulitis, Homicidal, Suicidal, threat to staff... and all critical care pts) @ -Low likelihood - Lab Data Result diagrams: 09/01/23 16:06 09/01/23 16:06 Lab Results 09/01/23 09/01/23 09/01/23 Range/Units 16:06 16:06 16:06 WBC 8.6 (3.8-10.6) k/uL RBC 3.73 L (3.80-5.40) m/uL Hgb 10.6 L (11.4-16.0) gm/dL Hct 33.7 L (34.0-46.0) % MCV 90.3 (80.0-100.0) fL MCH 28.4 (25.0-35.0) pg MCHC 31.4 (31.0-37.0) g/dL RDW 14.8 (11.5-15.5) % Plt Count 173 (150-450) k/uL MPV 9.1 Neutrophils % 69 % Lymphocytes % 22 % Monocytes % 5 % Eosinophils % 1 % Basophils % 0 % Neutrophils # 6.0 (1.3-7.7) k/uL Lymphocytes # 1.9 (1.0-4.8) k/uL Monocytes # 0.4 (0-1.0) k/uL Eosinophils # 0.1 (0-0.7) k/uL Basophils # 0.0 (0-0.2) k/uL Sodium 135 L (137-145) mmol/L Potassium 3.9 (3.5-5.1) mmol/L Chloride 107 (98-107) mmol/L Carbon Dioxide 22 (22-30) mmol/L Anion Gap 6 mmol/L BUN 15 (7-17) mg/dL Creatinine 0.41 L (0.52-1.04) mg/dL Est GFR (CKD-EPI)AfAm >90 (>60 ml/min/1.73 sqM) Est GFR (CKD-EPI)NonAf >90 (>60 ml/min/1.73 sqM) Glucose 96 (74-99) mg/dL Plasma Lactic Acid [place] 1.2 (0.7-2.0) mmol/L Calcium 8.6 (8.4-10.2) mg/dL Total Bilirubin 0.2 (0.2-1.3) mg/dL AST 21 (14-36) U/L ALT 19 (4-34) U/L Alkaline Phosphatase 37 L (38-126) U/L Total Protein 6.3 (6.3-8.2) g/dL Albumin 3.9 (3.5-5.0) g/dL HCG, Quant >400356.0 mIU/mL Urine Color Urine Appearance (Clear) Urine pH (5.0-8.0) Ur Specific [place] (1.001-1.035) Urine Protein (Negative) Urine Glucose (UA) (Negative) Urine Ketones (Negative) Urine Blood (Negative) Urine Nitrite (Negative) Urine Bilirubin (Negative) Urine Urobilinogen (<2.0) mg/dL Ur Leukocyte Esterase (Negative) Urine RBC (0-5) /hpf Urine WBC (0-5) /hpf Ur Squamous Epith Cells (0-4) /hpf Urine Bacteria (None) /hpf Urine Mucus (None) /hpf 09/01/23 Range/Units 16:06 WBC (3.8-10.6) k/uL RBC (3.80-5.40) m/uL Hgb (11.4-16.0) gm/dL Hct (34.0-46.0) % MCV (80.0-100.0) fL MCH (25.0-35.0) pg MCHC (31.0-37.0) g/dL RDW (11.5-15.5) % Plt Count (150-450) k/uL MPV Neutrophils % % Lymphocytes % % Monocytes % % Eosinophils % % Basophils % % Neutrophils # (1.3-7.7) k/uL Lymphocytes # (1.0-4.8) k/uL Monocytes # (0-1.0) k/uL Eosinophils # (0-0.7) k/uL Basophils # (0-0.2) k/uL Sodium (137-145) mmol/L Potassium (3.5-5.1) mmol/L Chloride (98-107) mmol/L Carbon Dioxide (22-30) mmol/L Anion Gap mmol/L BUN (7-17) mg/dL Creatinine (0.52-1.04) mg/dL Est GFR (CKD-EPI)AfAm (>60 ml/min/1.73 sqM) Est GFR (CKD-EPI)NonAf (>60 ml/min/1.73 sqM) Glucose (74-99) mg/dL Plasma Lactic Acid [place] (0.7-2.0) mmol/L Calcium (8.4-10.2) mg/dL Total Bilirubin (0.2-1.3) mg/dL AST (14-36) U/L ALT (4-34) U/L Alkaline Phosphatase (38-126) U/L Total Protein (6.3-8.2) g/dL Albumin (3.5-5.0) g/dL HCG, Quant mIU/mL Urine Color Light Yellow Urine Appearance Cloudy H (Clear) Urine pH 7.0 (5.0-8.0) Ur Specific [place] 1.029 (1.001-1.035) Urine Protein Trace H (Negative) Urine Glucose (UA) Negative (Negative) Urine Ketones Negative (Negative) Urine Blood Negative (Negative) Urine Nitrite Negative (Negative) Urine Bilirubin Negative (Negative) Urine Urobilinogen <2.0 (<2.0) mg/dL Ur Leukocyte Esterase Small H (Negative) Urine RBC 1 (0-5) /hpf Urine WBC 4 (0-5) /hpf Ur Squamous Epith Cells 7 H (0-4) /hpf Urine Bacteria Occasional H (None) /hpf Urine Mucus Rare H (None) /hpf Disposition Clinical Impression: Threatened in first trimester, Subchorionic bleed Disposition: HOME SELF-CARE Condition: Stable Instructions (If sedation given, give patient instructions): Threatened Miscarriage (ED) Additional Instructions: Please follow-up with OB in 48 hours for repeat beta hCG. Please return to the Emergency Department if symptoms worsen or any other concerns. Is patient prescribed a controlled substance at d/c from ED?: No Referrals: Kevin Elias MD [Primary Care Provider] - 1-2 days Time of Disposition: 18:39
[2023-09-01 16:57] LABS: Basophils % (A) 0 %; Eosinophils # (A) 0.1 k/uL (0-0.7); Eosinophils % (A) 1 %; HCT 33.7 % (34.0-46.0); HGB 10.6 gm/dL (11.4-16.0); Lymphocytes # (A) 1.9 k/uL (1.0-4.8); Lymphocytes % (A) 22 %; MCH 28.4 pg (25.0-35.0); MCHC 31.4 g/dL (31.0-37.0); MCV 90.3 fL (80.0-100.0); Mean Platelet Volume 9.1; Monocytes # (A) 0.4 k/uL (0-1.0); Monocytes % (A) 5 %; Neutrophils % (A) 69 %; Platelet Count 173 k/uL (150-450); RBC 3.73 m/uL (3.80-5.40); RDW 14.8 % (11.5-15.5); WBC 8.6 k/uL (3.8-10.6)
--- NOTE | 2023-09-01 16:58 | US ---
EXAMINATION TYPE: Transabdominal DATE OF EXAM: 09/01/2023 4:34 PM COMPARISON: 08/16/23 CLINICAL INDICATION: Female, 23 years old with history of abd cramping/spotting; pink discharge and c ramping x 2 days EXAM PERFORMED: Transabdominal (TA) EXAM MEASUREMENTS: GESTATIONAL AGE / DATING Physician Established: (7 weeks/5 days) EDC: 04/14/24 Dates by LMP: 07/08/23 (7 weeks/6 days) EDC: 04/13/24 Dates by First Scan: (7 weeks/5 days) EDC: 04/14/24 Dates by Current Scan for: (7 weeks/6 days) EDC: 04/13/24 MATERNAL ANATOMY Uterus: 10.0 x 8.6 x 5.6cm Right Ovary: 3.0 x 1.7 x 1.5cm Left Ovary: 4.1 x 2.6 x 1.6cm Post CDS / Adnexa: wnl Presence of free fluid: no Presence of corpus luteal cyst: Yes in lt ov measuring 2.3 x 2.1 x 1.4cm Presence of subchorionic bleed: Yes measuring 1.8 x 1.2 x 0.6cm GESTATION / SURVEY CRL: 1.45cm (7 weeks/6 days) MSD: appears wnl Yolk Sac (normal less than 6mm): 2.7mm Heart Rate: 142 bpm Rhythm: Normal IUP: Viable IUP Date of LMP: 07/08/23 Beta HcG (if available): n/a IMPRESSION: 1. Single viable intrauterine estimated age of 7 weeks and 6 days. 2. 1.8 x 1.2 x 0.6 subchorionic bleed which has increased in the interval compared to the prior study . Previously measured 0.7 x 1.0 x 0.6 cm.
[2023-09-01 17:06] LABS: Appearance,Urine Cloudy (Clear); Bacteria,Urine Occasional /hpf; Bilirubin,Urine Negative (Negative); Blood,Urine Negative (Negative); Color,Urine Light Yellow; Glucose,Urine (UA) Negative (Negative); Ketones,Urine Negative (Negative); Leukocyte Esterase,Urine Small (Negative); Mucus,Urine Rare /hpf; Nitrite,Urine Negative (Negative); Protein,Urine Trace (Negative); RBC,Urine 1 /hpf (0-5); Specific Gravity,Urine 1.029 (1.001-1.035); Squamous Epithelial Cell,Urine 7 /hpf (0-4); Urobilinogen,Urine <2.0 mg/dL (<2.0); WBC,Urine 4 /hpf (0-5)
[2023-09-01 17:09] LABS: ALT 19 U/L (4-34); AST 21 U/L (14-36); African American GFR (CKD) >90 (>60 ml/min/1.73 sqM); Albumin 3.9 g/dL (3.5-5.0); Alkaline Phosphatase 37 U/L (38-126); Anion Gap 6 mmol/L; Blood Urea Nitrogen 15 mg/dL (7-17); Calcium 8.6 mg/dL (8.4-10.2); Carbon Dioxide 22 mmol/L (22-30); Chloride 107 mmol/L (98-107); Glucose 96 mg/dL (74-99); Non-African American GFR(CKD) >90 (>60 ml/min/1.73 sqM); Potassium 3.9 mmol/L (3.5-5.1); Sodium 135 mmol/L (137-145); Total Bilirubin 0.2 mg/dL (0.2-1.3); Total Protein 6.3 g/dL (6.3-8.2)
[2023-09-01 18:24] LABS: HCG,Quantitative Serum >225000.0 mIU/mL
[2023-09-01 18:54] VITALS: BP 125/68; PULSE 75; TEMP 97.9
== END 2023-09-01 18:54 | disposition home or self-care (01) ==
LOC: EC 15:04
DX: O20.0 Threatened abortion (principal); O99.331 Smoking (tobacco) complicating pregnancy, first trimester; F17.290 Nicotine dependence, other tobacco product, uncomplicated; Z3A.01 Less than 8 weeks gestation of pregnancy
CPT/HCPCS: 36415; 76801; 80053; 81001; 83605; 84702; 85025; 99284

== ENCOUNTER → 2023-09-03 | Outpatient (CLI) | payer OTHER | END | disposition home or self-care (01) | LOC: LABWHC1 12:09 | PROVIDERS: ATTEND Physician Assistant | DX: O20.0 Threatened abortion (principal) | CPT/HCPCS: 36415; 84702 ==

== ENCOUNTER 2024-03-03 15:06 | Emergency (ER) | payer OTHER ==
--- NOTE | 2024-03-03 15:27 | ED ---
General Adult HPI - General Stated complaint: marc/Cough/chest pain-34 weeks gest Time Seen by Provider: 03/03/24 15:10 Source: patient, RN notes reviewed Mode of arrival: ambulatory Limitations: no limitations - History of Present Illness Initial comments: 23-year-old female presents emergency department complaint cough congestion. Patient states she is been sick for last 7 to 10 days. Patient states that she has a productive cough with green sputum. Patient states she is 34 weeks with no related complaints she states she has pain in her ribs when she coughs but has no resting chest pain no significant shortness of breath she reports possible fever and mild bodyaches with increasing nasal congestion. - Related Data Previous Rx's Medication Instructions Recorded Amoxic-Pot Clav 875-125Mg 1 tab PO Q12HR #20 tab 03/03/24 [Augmentin 875-125] Allergies Allergy/AdvReac Type Severity Reaction Status Date / Time No Known Allergies Allergy Verified 03/04/24 16:36 Review of Systems ROS Statement: Those systems with pertinent positive or pertinent negative responses have been documented in the HPI. ROS Other: All systems not noted in ROS Statement are negative. Past Medical History Past Medical History: No Reported History Additional Past Medical History / Comment(s): A+GBS neg. History of Any Multi-Drug Resistant Organisms: None Reported Past Surgical History: No Surgical Hx Reported Past Anesthesia/Blood Transfusion Reactions: No Reported Reaction Past Psychological History: No Psychological Hx Reported Smoking Status: Vaper Past Alcohol Use History: None Reported Past Drug Use History: None Reported - Past Family History Mother History Unknown: Yes Family Medical History: No Reported History General Exam Limitations: no limitations General appearance: alert, in no apparent distress Head exam: Present: atraumatic, normocephalic, normal inspection Eye exam: Present: normal appearance, PERRL, EOMI. Absent: scleral icterus, conjunctival injection, periorbital swelling ENT exam: Present: normal exam, normal oropharynx, mucous membranes moist Neck exam: Present: normal inspection, full ROM. Absent: tenderness, meningismus, lymphadenopathy Respiratory exam: Present: normal lung sounds bilaterally. Absent: respiratory distress, wheezes, rales, rhonchi, stridor Cardiovascular Exam: Present: regular rate, normal rhythm, normal heart sounds. Absent: systolic murmur, diastolic murmur, rubs, gallop, clicks GI/Abdominal exam: Present: soft, normal bowel sounds. Absent: distended, tenderness, guarding, rebound, rigid Course Vital Signs 03/03/24 03/03/24 15:39 17:02 Temperature 98.4 F Pulse Rate 83 80 Respiratory 18 18 Rate Blood Pressure 138/76 126/86 O2 Sat by Pulse 99 100 Oximetry Medical Decision Making - Medical Decision Making Was pt. sent in by a medical professional or institution (, [facility], [facility], urgent care, hospital, or senior living...) When possible be specific @ -No Did you speak to anyone other than the patient for history (EMS, parent, family, police, friend...)? What history was obtained from this source @ -No Did you review nursing and triage notes (agree or disagree)? Why? @ -I reviewed and agree with nursing and triage notes Were old charts reviewed (outside hosp., previous admission, EMS record, old EKG, old radiological studies, urgent care reports/EKG's, senior living records)? Report findings @ -No old charts were reviewed Differential Diagnosis (chest pain, altered mental status, abdominal pain women, abdominal pain men, vaginal bleeding, weakness, fever, dyspnea, syncope, headache, dizziness, GI bleed, back pain, seizure, CVA, palpatations, mental health, musculoskeletal)? @ -COVID 19, RSV, influenza, pneumonia, acute bronchitis, URI, this list is not all inclusive EKG interpreted by me (3pts min.). @ -None X-rays interpreted by me (1pt min.). @ -Chest x-ray shows no definite infiltrate CT interpreted by me (1pt min.). @ -None done U/S interpreted by me (1pt. min.). @ -None done What testing was considered but not performed or refused? (CT, X-rays, U/S, labs)? Why? @ -None What meds were considered but not given or refused? Why? @ -None Did you discuss the management of the patient with other professionals (professionals i.e. [facility] Enriquez, [facility], lab, RT, psych nurse, social worker clinical, senior advisory, teacher, systems support officer, classification case manager)? Give summary @ -No Was smoking cessation discussed for >3mins.? @ -No Was critical care preformed (if so, how long)? @ -No Were there social determinants of health that impacted care today? How? (Homelessness, low income, unemployed, alcoholism, drug addiction, transportation, low edu. Level, literacy, decrease access to med. care, senior care, rehab)? @ -No Was there de-escalation of care discussed even if they declined (Discuss DNR or withdrawal of care, Hospice)? DNR status @ -No What co-morbidities impacted this encounter? (DM, HTN, Smoking, COPD, CAD, Cancer, CVA, ARF, Chemo, Hep., AIDS, mental health diagnosis, sleep apnea, morbid obesity)? @ -None Was patient admitted / discharged? Hospital course, mention meds given and route, prescriptions, significant lab abnormalities, going to OR and other per tinent info. @ -Discharge patient presented for URI symptoms. Patient had symptoms for greater than 10 days she has productive cough without acute changes patient was treated for acute tracheobronchitis negative Cepheid. Undiagnosed new problem with uncertain prognosis? @ -No Drug Therapy requiring intensive monitoring for toxicity (Heparin, Nitro, Insulin, Cardizem)? @ -No Were any procedures done? @ -No Diagnosis/symptom? @ -Tracheobronchitis Acute, or Chronic, or Acute on Chronic? @ -Acute Uncomplicated (without systemic symptoms) or Complicated (systemic symptoms)? @ -[Uncomplicated Side effects of treatment? @ -No Exacerbation, Progression, or Severe Exacerbation? @ -No Poses a threat to life or bodily function? How? (Chest pain, USA, AR, pneumonia, PE, COPD, DKA, ARF, appy, cholecystitis, CVA, Diverticulitis, Homicidal, Suicidal, threat to staff... and all critical care pts) @ -No - Lab Data Lab Results 03/03/24 Range/Units 15:41 Influenza Type A (PCR) Not Detected (Not Detectd) Influenza Type B (PCR) Not Detected (Not Detectd) RSV (PCR) Not Detected (Not Detectd) SARS-CoV-2 (PCR) Not Detected (Not Detectd) Disposition Clinical Impression: Tracheobronchitis Disposition: HOME SELF-CARE Condition: Stable Instructions (If sedation given, give patient instructions): Upper Respiratory Infection (ED) Additional Instructions: Please return to the Emergency Department if symptoms worsen or any other concerns. Prescriptions: Amoxic-Pot Clav 875-125Mg [Augmentin 875-125] 1 tab PO Q12HR #20 tab Is patient prescribed a controlled substance at d/c from ED?: No Referrals: Kevin Elias MD [Primary Care Provider] - 1-2 days Time of Disposition: 16:36
[2024-03-03 15:42] VITALS: RESP 18; TEMP 98.4
--- NOTE | 2024-03-03 16:12 | XR ---
EXAMINATION TYPE: XR chest 2V DATE OF EXAM: 03/03/2024 4:08 PM COMPARISON: None. CLINICAL INDICATION: Female, 23 years old with history of sob; [facility] TECHNIQUE: XR chest 2V Frontal and lateral views of the chest. FINDINGS: Lungs/Pleura: There is no evidence of pleural effusion, focal consolidation, or pneumothorax. Pulmonary vascularity: Unremarkable. Heart/mediastinum: Cardiomediastinal silhouette is unremarkable. Musculoskeletal: No acute osseous pathology. Other findings: None IMPRESSION: No acute cardiopulmonary disease/process. [facility], , 03/03/2024 4:09 PM
[2024-03-03 17:13] VITALS: BP 126/86; PULSE 80
== END 2024-03-03 17:18 | disposition home or self-care (01) ==
LOC: EC 15:06
DX: O99.513 Diseases of the respiratory system complicating pregnancy, third trimester (principal); J40 Bronchitis, not specified as acute or chronic; O99.333 Smoking (tobacco) complicating pregnancy, third trimester; F17.290 Nicotine dependence, other tobacco product, uncomplicated; Z3A.34 34 weeks gestation of pregnancy
CPT/HCPCS: 71046; 87636; 99285

== ENCOUNTER 2024-03-04 16:25 | Outpatient (CLI) | payer OTHER ==
[2024-03-04 17:05] LABS: Appearance,Urine Clear (Clear); Bacteria,Urine Many /hpf; Bilirubin,Urine Negative (Negative); Blood,Urine Negative (Negative); Color,Urine Colorless; Glucose,Urine (UA) Negative (Negative); Ketones,Urine Trace (Negative); Leukocyte Esterase,Urine Moderate (Negative); Mucus,Urine Rare /hpf; Nitrite,Urine Negative (Negative); Protein,Urine Negative (Negative); RBC,Urine 1 /hpf (0-5); Specific Gravity,Urine 1.011 (1.001-1.035); Squamous Epithelial Cell,Urine 7 /hpf (0-4); Urobilinogen,Urine <2.0 mg/dL (<2.0); WBC,Urine 6 /hpf (0-5)
[2024-03-04 17:32] VITALS: BP 138/77; PULSE 93; RESP 18; TEMP 97.3
--- NOTE | 2024-03-28 11:28 | P.MSEPDOC ---
Presenting Problems - Arrival Data Date of Arrival on Unit: 03/04/24 Time of Arrival on Unit: 16:25 Mode of Transport: Ambulatory - Complaint OB-Reason for Admission/Chief Complaint: Acute Nausea/Vomiting, Headache Comment: Pt reports to triage c\complaints of headache, cramping and nausea. Medical History - Information : 4 Para: 3 Number of Living Children: 3 - Gestational Age Gestational Age by JOHNATHON (wks/days): 34 Weeks and 2 Days Review of Systems - Review of Systems Constitutional: No problems Breast: No problems ENT: No problems Cardiovascular: No problems Respiratory: No problems Gastrointestinal: No problems Genitourinary: No problems Musculoskeletal: No problems Neurological: No problems Skin: No problems Vital Signs - Temperature Temperature: 97.3 F Temperature Source: Temporal Artery Scan - Pulse Right Sitting Brachial Pulse Rate: 93 Pulse Assessment Method: Pulse Oximetry - Respirations Respiratory Rate: 18 Oxygen Delivery Method: Room Air O2 Sat by Pulse Oximetry: 98 - Blood Pressure Right Arm Sitting Blood Pressure: 138/77 Blood Pressure Mean: 97 Blood Pressure Source: Automatic Cuff Medical Screen Scoring - Cervical Exam Dilation (cm): 0 Effacement (%): 0 Station: -3 Membranes: Intact - Assessment - Baby A Baseline FHR: 130 Heart Rate - NICHD Category: Category I (Normal) NST: Reactive Physician Notification - Physician Notified Physician Notified Date: 03/04/24 Physician Notified Time: 16:58 Physician: Ric Vieira Order Received: Yes - Notification Comment Comment: Spk c\Dr. Vieira who is familiar c\pt. Advsd of pts concerns of cramping that began today, nausea and headache also started today after pt started augmentin for an upper respiratory infection. NST reactive, no uterine activity on TOCO. Orders to complete amnisure and review urine results when available.Pt may be discharged home c\negative amnisure and UA WNL Maternal Triage Index - Maternal Triage Index Presenting for scheduled procedure w/no complaint: No - Stat/Priority 1 Stat Priority 1: No - Urgent/Priority 2 Urgent Priority 2: No - Prompt/Priority 3 Prompt Priority 3: No - Non-Urgent/Priority 4 Non-Urgent Priority 4: Yes Criteria Met for Priority 4: Headache, cramping, nausea Disposition - Disposition OB Disposition: Discharge to home Discharge Date: 03/04/24 Discharge Time: 17:20 I agree with the RN Medical Screening Exam: Yes Physician's MSE Comment: I have neither seen nor examined the patient. Case reviewed; plan agreed upon as documented in EMR&OBIX.: Yes Diagnosis: RELATED CONDITIONS, UNSPECIFIED, THIRD TRIMESTER
== END 2024-03-04 17:25 | disposition home or self-care (01) ==
LOC: FBPOP 16:25
PROVIDERS: ATTEND Obstetrics & Gynecology
DX: O26.93 Pregnancy related conditions, unspecified, third trimester (principal); Z87.891 Personal history of nicotine dependence; Z3A.34 34 weeks gestation of pregnancy
CPT/HCPCS: 59025; 81001; G0463; 99213

== ENCOUNTER 2024-03-15 20:45 | Observation (INO) | payer OTHER ==
[2024-03-15 21:29] LABS: Appearance,Urine Clear (Clear); Bilirubin,Urine Negative (Negative); Blood,Urine Negative (Negative); Color,Urine Colorless; Glucose,Urine (UA) Negative (Negative); Ketones,Urine Negative (Negative); Leukocyte Esterase,Urine Negative (Negative); Nitrite,Urine Negative (Negative); PH, Urine 6.5 (5.0-8.0); Protein,Urine Negative (Negative); Specific Gravity,Urine 1.005 (1.001-1.035); Urobilinogen,Urine <2.0 mg/dL (<2.0)
[2024-03-15 21:37] LABS: Basophils % (A) 0 %; Eosinophils # (A) 0.2 k/uL (0-0.7); Eosinophils % (A) 2 %; HCT 27.6 % (34.0-46.0); Hypochromasia Slight; Lymphocytes # (A) 2.6 k/uL (1.0-4.8); Lymphocytes % (A) 23 %; MCH 27.2 pg (25.0-35.0); MCHC 32.7 g/dL (31.0-37.0); MCV 83.1 fL (80.0-100.0); Mean Platelet Volume 8.4; Monocytes # (A) 0.6 k/uL (0-1.0); Monocytes % (A) 6 %; Neutrophils # (A) 7.3 k/uL (1.3-7.7); Neutrophils % (A) 66 %; Platelet Count 230 k/uL (150-450); RBC 3.32 m/uL (3.80-5.40); RDW 14.5 % (11.5-15.5)
[2024-03-15 21:39] LABS: Creatinine,Urine Random 20.7 mg/dL; Protein/Creatinine Ratio,Urine 0.628
[2024-03-15 21:46] LABS: ALT 24 U/L (4-34); AST 28 U/L (14-36); African American GFR (CKD) >90 (>60 ml/min/1.73 sqM); Blood Urea Nitrogen 9 mg/dL (7-17); LDH 205 U/L (120-246); Non-African American GFR(CKD) >90 (>60 ml/min/1.73 sqM); Uric Acid 3.1 mg/dL (3.7-7.4)
[2024-03-15] MEDS: LACTATED RINGERS 1,000 ML IV SCH (22:47)
[2024-03-15] MEDS: ACETAMINOPHEN TAB 325 MG TAB PO PRN (22:48)
--- NOTE | 2024-03-16 08:46 | P.HPOB ---
History of Present Illness H&P Date: 03/16/24 Chief Complaint: 35-6/7 weeks, increased blood pressure Patient is a 23-year-old 4 para 3-0-0-3 who presented to the hospital with increased blood pressures in the range of 150s over 90s with a secondary complaint of mild headache. Laboratory workup was performed which was entirely normal with the exception of protein to creatinine ratio which was elevated at roughly 0.6. She was admitted for 23-hour observation and 24-hour urine collection. Overnight, her blood pressures have normalized to approximately 130 over 70s and symptoms have entirely resolved. She has a category 1 heart rate tracing and no evidence of contractions. Obstetrical history: 4 para 3-0-0-3 with 3 term vaginal deliveries, the last of which was an induction for reportedly elevated blood pressures. record is not available on the chart at this time to record laboratory values. Gynecologic history: Unremarkable with no history of any infections to include STDs. Review of Systems Review of systems is confined to history of present illness. Past Medical History Past Medical History: No Reported History Additional Past Medical History / Comment(s): A+GBS neg. History of Any Multi-Drug Resistant Organisms: MRSA Date of last positivie culture/infection: 2015 MDRO Source:: Perineal Past Surgical History: No Surgical Hx Reported Past Anesthesia/Blood Transfusion Reactions: No Reported Reaction Past Psychological History: No Psychological Hx Reported Smoking Status: Never smoker Past Alcohol Use History: None Reported Past Drug Use History: None Reported - Past Family History Mother History Unknown: Yes Family Medical History: No Reported History Medications and Allergies Home Medications Medication Instructions Recorded Confirmed Type No Known Home Medications 03/15/24 03/15/24 History Allergies Allergy/AdvReac Type Severity Reaction Status Date / Time No Known Allergies Allergy Verified 03/15/24 21:08 Exam Vital Signs Temp Pulse Resp BP Pulse Ox 03/15/24 22:30 98.3 F 113 H 16 135/71 99 03/15/24 22:10 98.9 F 81 19 131/65 97 Intake and Output 03/15/24 03/16/24 03/16/24 22:59 06:59 14:59 Intake Total 480 Balance 480 Intake: Oral 480 Other: # Voids 2 Weight 64.41 kg General, this is a well-developed, well-nourished white female in no acute distress. Her heart has a regular rhythm and rate without murmur. Her lungs are clear to auscultation bilaterally in all brunson. Her abdomen is gravid, nondistended, has normal active bowel sounds, soft, nontender, and without any palpable masses aside from the uterine fundus. Her extremities are without any cyanosis, clubbing, or significant edema and are nontender to palpation bilaterally. Digital cervical examination is deferred. Results Result Diagrams: 03/15/24 21:23 03/15/24 21: Abnormal Lab Results - Last 24 Hours (Table) 03/15/24 03/15/24 Range/Units 21: 21: WBC 11.0 H (3.8-10.6) k/uL RBC 3.32 L (3.80-5.40) m/uL Hgb 9.0 L (11.4-16.0) gm/dL Hct 27.6 L (34.0-46.0) % Creatinine 0.45 L (0.52-1.04) mg/dL Uric Acid 3.1 L (3.7-7.4) mg/dL Assessment and Plan (1) 35 to 36 weeks gestation of Current Visit: Yes Status: Acute Code(s): VCU8769 - SNOMED Code(s): 257520723 (2) Gestational hypertension Current Visit: No Status: Acute Code(s): O13.9 - GESTATIONAL HTN W/O SIGNIFICANT PROTEINURIA, UNSP TRIMESTER SNOMED Code(s): 20585211 Plan: Given the initial elevated blood pressures and an elevated protein to creatinine ratio, the patient was admitted for 24-hour urine collection for protein and creatinine. Overnight and at rest, her blood pressures have entirely normalized and she has no further symptomatology. The remainder of her laboratory workup was entirely within normal limits with no evidence of preeclampsia. Given her gestational age and lack of laboratory symptoms or symptoms otherwise, we will discharge her to home to follow-up in the office in 2 days as previously scheduled for repeat blood pressure check. She will be instructed to call or return with any increasing symptoms. My intention would be to plan to deliver her after she reaches the definition of full-term, 37 weeks, in the absence of further symptomatology.
--- NOTE | 2024-03-16 08:51 | P.DS ---
Providers Date of admission: 03/15/24 22:15 Expected date of discharge: 03/16/24 Attending physician: Marily Reed Primary care physician: Stated None - Discharge Diagnosis(es) (1) 35 to 36 weeks gestation of Current Visit: Yes Status: Acute (2) Gestational hypertension Current Visit: No Status: Acute Hospital Course: Patient is a 23-year-old 4 para 3 admitted at 35-6/7 weeks with elevated blood pressures in triage and mild complaints of headache. She had laboratory workup performed for preeclampsia which was entirely negative aside from an elevated protein to creatinine ratio. She was admitted for 24-hour urine collection and observation. Overnight, her blood pressures have entirely normalized and her symptomatology has disappeared. Given her early gestational age, I will discharge her to home to follow-up in the office closely with next appointment in 2 days. She is to call for any increasing symptomatology and I have asked her to remain at rest over the course of the next week with the intention of potentially delivering her after she reaches 37 weeks of gestation. She will continue to collect her 24-hour urine for protein and creatinine ratio and will deliver that to the hospital tomorrow morning for evaluation to allow for further decision making. She has had a category 1 heart rate tracing throughout her admission. She understood her instructions and agrees to follow- up as noted above. Discharge medications included only continued vitamins and any [id number] analgesics that she might need to include Tylenol. Procedures: #1. 23-hour observation #2. 24-hour urine collection for protein and creatinine #3. Serial blood pressure monitoring Patient Condition at Discharge: Stable Plan - Discharge Summary New Discharge Prescriptions: No Action No Known Home Medications Discharge Medication List No Known Home Medications 03/15/24 [History] Follow up Appointment(s)/Referral(s): Ric Vieira MD [STAFF PHYSICIAN] - 1-2 Days Discharge Disposition: HOME SELF-CARE
[2024-03-16 08:56] VITALS: BP 140/80; PULSE 117; RESP 15; TEMP 98.2
== END 2024-03-16 11:24 | disposition home or self-care (01) ==
LOC: FBPOP 20:45 → 4FBP 22:15
PROVIDERS: ADMIT Obstetrics & Gynecology; ATTEND Obstetrics & Gynecology
DX: O13.3 Gestational [pregnancy-induced] hypertension without significant proteinuria, third trimester (principal); Z3A.35 35 weeks gestation of pregnancy
CPT/HCPCS: 59025; 36415; 82570; 84156; 82565; 83615; 84450; 84460; 84520; 84550; 85025; 81003; G0463; G0378; 99215

== ENCOUNTER 2024-03-17 10:14 | Outpatient (CLI) | payer OTHER ==
[2024-03-17 10:57] LABS: Appearance,Urine Clear (Clear); Bilirubin,Urine Negative (Negative); Blood,Urine Negative (Negative); Color,Urine Colorless; Glucose,Urine (UA) Negative (Negative); Ketones,Urine Negative (Negative); Leukocyte Esterase,Urine Negative (Negative); Nitrite,Urine Negative (Negative); PH, Urine 6.5 (5.0-8.0); Protein,Urine Negative (Negative); Urobilinogen,Urine <2.0 mg/dL (<2.0)
[2024-03-17 11:22] LABS: Basophils % (A) 0 %; Eosinophils # (A) 0.1 k/uL (0-0.7); Eosinophils % (A) 2 %; HCT 25.8 % (34.0-46.0); HGB 8.5 gm/dL (11.4-16.0); Hypochromasia Slight; Lymphocytes # (A) 1.7 k/uL (1.0-4.8); Lymphocytes % (A) 19 %; MCH 27.1 pg (25.0-35.0); MCHC 32.8 g/dL (31.0-37.0); MCV 82.8 fL (80.0-100.0); Monocytes # (A) 0.4 k/uL (0-1.0); Monocytes % (A) 4 %; Neutrophils # (A) 6.5 k/uL (1.3-7.7); Neutrophils % (A) 73 %; Platelet Count 211 k/uL (150-450); Poikilocytosis Slight; RBC 3.12 m/uL (3.80-5.40); RDW 14.7 % (11.5-15.5); WBC 8.9 k/uL (3.8-10.6)
[2024-03-17 11:33] LABS: INR 0.8 (<1.2); Partial Thromboplastin Time 20.7 sec (22.0-30.0); Prothrombin Time 9.6 sec (10.0-12.5)
[2024-03-17 11:38] LABS: Creatinine,Urine Random 52.9 mg/dL
[2024-03-17 11:39] LABS: Creatinine,Urine Random 52.2 mg/dL; Protein/Creatinine Ratio,Urine 0.134
[2024-03-17 12:00] LABS: ALT 24 U/L (4-34); AST 27 U/L (14-36); African American GFR (CKD) >90 (>60 ml/min/1.73 sqM); Blood Urea Nitrogen 8 mg/dL (7-17); LDH 167 U/L (120-246); Magnesium 1.7 mg/dL (1.6-2.3); Non-African American GFR(CKD) >90 (>60 ml/min/1.73 sqM); Uric Acid 3.1 mg/dL (3.7-7.4)
[2024-03-17 12:26] VITALS: BP 151/85; PULSE 144; RESP 16; TEMP 97.8
--- NOTE | 2024-03-28 11:38 | P.MSEPDOC ---
Presenting Problems - Arrival Data Date of Arrival on Unit: 03/17/24 Time of Arrival on Unit: 10:14 Mode of Transport: Ambulatory - Complaint OB-Reason for Admission/Chief Complaint: Headache, PIH, Dizziness Medical History - Information : 4 Para: 3 Number of Living Children: 3 - Gestational Age Gestational Age by JOHNATHON (wks/days): 36 Weeks and 1 Days Review of Systems - Review of Systems Constitutional: No problems Breast: No problems ENT: No problems Cardiovascular: No problems Respiratory: No problems Gastrointestinal: No problems Genitourinary: No problems Musculoskeletal: No problems Neurological: No problems Skin: No problems Vital Signs - Temperature Temperature: 97.8 F Temperature Source: Temporal Artery Scan - Pulse Right Sitting Brachial Pulse Rate: 144 Pulse Assessment Method: Auscultation - Respirations Respiratory Rate: 16 Oxygen Delivery Method: Room Air O2 Sat by Pulse Oximetry: 100 - Blood Pressure Right Arm Sitting Blood Pressure: 151/85 Blood Pressure Mean: 107 Blood Pressure Source: Automatic Cuff Medical Screen Scoring - Uterine Contractions Frequency From (mins): 0 Frequency To (mins): 0 Duration From (seconds): 0 Duration To (seconds): 0 - Assessment - Baby A Baseline FHR: 145 Heart Rate - NICHD Category: Category I (Normal) NST: Reactive Physician Notification - Physician Notified Physician Notified Date: 03/17/24 Physician Notified Time: 12:16 Physician: Ric Vieira New Order Received: Yes (labs, results, discharge) Maternal Triage Index - Maternal Triage Index Presenting for scheduled procedure w/no complaint: No - Stat/Priority 1 Stat Priority 1: No - Urgent/Priority 2 Urgent Priority 2: Yes Provider Notified: Ric Vieira Provider Notified Time: 10:33 Criteria Met for Priority 2: elevated BP and HR Disposition - Disposition OB Disposition: Discharge to home Discharge Date: 03/17/24 Discharge Time: 12:26 I agree with the RN Medical Screening Exam: Yes Physician's MSE Comment: I have neither seen nor examined the patient. Case reviewed; plan agreed upon as documented in EMR&OBIX.: Yes Diagnosis: RELATED CONDITIONS, UNSPECIFIED, THIRD TRIMESTER
== END 2024-03-17 12:26 | disposition home or self-care (01) ==
LOC: FBPOP 10:14
PROVIDERS: ATTEND Obstetrics & Gynecology
DX: O26.93 Pregnancy related conditions, unspecified, third trimester (principal); Z3A.36 36 weeks gestation of pregnancy; Z87.891 Personal history of nicotine dependence
CPT/HCPCS: 59025; 36415; 82570; 84156; 82565; 83615; 83735; 84450; 84460; 84520; 84550; 85025; 85384; 85610; 85730; 81003; G0463; 99215

== ENCOUNTER 2024-03-31 00:33 | Outpatient (CLI) | payer OTHER ==
[2024-03-31 01:26] VITALS: BP 142/65; PULSE 111; RESP 16; TEMP 97.8
== END 2024-03-31 01:05 | disposition home or self-care (01) ==
LOC: FBPOP 00:33
PROVIDERS: ATTEND Obstetrics & Gynecology
DX: Z53.9 Procedure and treatment not carried out, unspecified reason (principal)
CPT/HCPCS: 59025; G0463; 99213

== ENCOUNTER 2024-03-31 14:46 | Outpatient (CLI) | payer OTHER ==
[2024-03-31 15:35] VITALS: BP 133/62; PULSE 106; RESP 16; TEMP 98.6
--- NOTE | 2024-04-30 23:50 | P.MSEPDOC ---
Presenting Problems - Arrival Data Date of Arrival on Unit: 03/31/24 Time of Arrival on Unit: 14:46 Mode of Transport: Ambulatory - Complaint OB-Reason for Admission/Chief Complaint: Acute Nausea/Vomiting, Headache Medical History - Information : 5 Para: 3 Number of Living Children: 3 - Gestational Age Gestational Age by JOHNATHON (wks/days): 38 Weeks and 1 Days Review of Systems - Review of Systems Constitutional: No problems Breast: No problems ENT: No problems Cardiovascular: No problems Respiratory: No problems Gastrointestinal: No problems Genitourinary: No problems Musculoskeletal: No problems Neurological: No problems Skin: No problems Vital Signs - Temperature Temperature: 98.6 F Temperature Source: Oral - Pulse Right Sitting Brachial Pulse Rate: 106 Pulse Assessment Method: Automatic Cuff - Respirations Respiratory Rate: 16 Oxygen Delivery Method: Room Air - Blood Pressure Right Arm Sitting Blood Pressure: 133/62 Blood Pressure Mean: 85 Blood Pressure Source: Automatic Cuff Medical Screen Scoring - Assessment - Baby A Baseline FHR: 130 Heart Rate - NICHD Category: Category I (Normal) NST: Reactive Physician Notification - Physician Notified Physician Notified Date: 03/31/24 Physician Notified Time: 15:15 Physician: Ric Vieira Order Received: Yes (offer IV fluids and zofran, if declined pt may be dc home) Maternal Triage Index - Maternal Triage Index Presenting for scheduled procedure w/no complaint: No - Stat/Priority 1 Stat Priority 1: No - Urgent/Priority 2 Urgent Priority 2: No - Prompt/Priority 3 Prompt Priority 3: No - Non-Urgent/Priority 4 Non-Urgent Priority 4: Yes Criteria Met for Priority 4: nausea and headache Disposition - Disposition OB Disposition: Discharge to home Discharge Date: 03/31/24 Discharge Time: 15:25 I agree with the RN Medical Screening Exam: Yes Physician's MSE Comment: I have neither seen nor examined the patient. Case reviewed; plan agreed upon as documented in EMR&OBIX.: Yes Diagnosis: RELATED CONDITIONS, UNSPECIFIED, THIRD TRIMESTER
== END 2024-03-31 15:25 | disposition home or self-care (01) ==
LOC: FBPOP 14:46
PROVIDERS: ATTEND Obstetrics & Gynecology
DX: O26.93 Pregnancy related conditions, unspecified, third trimester (principal); Z3A.38 38 weeks gestation of pregnancy; Z87.891 Personal history of nicotine dependence
CPT/HCPCS: 59025; G0463; 99213